=== PATIENT | female | born 1940 | race Caucasian/White ===

== ENCOUNTER 2016-08-19 11:53 | Inpatient (IN) ==
[2016-08-19] MEDS ORDERED: SODIUM CHLORIDE 0.9% 1,000 ML IV STA (12:36)
--- NOTE | 2016-08-19 12:48 | XRay Report ---
XR chest 1V portable Indication: Altered mental status Comparison: None Technique: Single frontal view of the chest. Findings: Heart size appears within normal limits. Chronic change of the lungs without focal consolidation, pleural effusion, or pneumothorax. Visualized osseous and surrounding soft tissue structures demonstrate no acute abnormality. Diffuse osteopenia. IMPRESSION: No acute cardiopulmonary process demonstrated. PROCEDURE INTERPRETED AT [facility] DEPARTMENT OF RADIOLOGY Final Report Signed by: Dr David Garcia
--- NOTE | 2016-08-19 12:48 | Emergency Department Note ---
Mary Jane Dior Gwan, am scribing for, and in the presence of, Joe Blood MD 12 :35. Caitie Dior Charles R, MD, personally performed the services described in this documentation, ascribed by Clare Hinton in my presence, and it is both accurate and complete . Arrival - Arrival Chief Complaint: Altered Mental Status Stated Complaint: Altered LOC ED Nursing Triage Note: Brought in per EMS from [facility] with c/o altered mental status onset 08/16/16 after starting on Namenda. Awake and alert to name only. +edema noted to bilateral lower extremities. Family also c/o patient with decreased urine output. Mode of Arrival: Stretcher Limitations: No Limitations Source: Patient, Family, Old Records Reviewed, RN Notes Reviewed Time Seen by Provider: 08/19/16 12:17 - History of Present Illness HPI Narrative: Patient is an ill-appearing 76 y/o white female who was brought into the ED via EMS from [facility] for further evaluation of AMS with an onset 3 days ago. Patient is confused and a poor historian. She is accompanied by a family member. Family stated that pt has a hx of broken right hip s/p fall last week. Family confirmed that pt is being followed by Dr. Johnson and was last seen in office last week with NML results. Her basline consist of walking with her walker and being coherent. Since onset, pt had not been ambulatory at all and has had severe confusion. Family also stated that pt has had decreased PO intake and decreased urine output. No other problems/complaints reported in ED. Onset (ago): day(s) Consistency: constant Severity: moderate Date of Last Menstrual Period: PM Allergies/Adverse Reactions: Allergies Allergy/AdvReac Type Severity Reaction Status Date / Time Penicillins Allergy Unknown/Unable Verified 08/19/16 12:07 to obtain Review of System - Review of System ROS unobtainable: due to mental status Medical,Surgical,& Family Hx - Medical History Cardio: History of: Cardiac Dysrhythmia (afib), Hypertension Neurology: History of: Dementia - Social History Smoking Status: Smoker, status unknown Frequency of Alcohol Use: None Type of Drug Use: None Exam Vital Signs: Vital Signs Temperature 97.4 F L 08/19/16 11:53 Pulse Rate 79 08/19/16 11:53 Respiratory Rate 20 08/19/16 11:53 Blood Pressure 94/55 08/19/16 11:53 O2 Sat by Pulse Oximetry 94 L 08/19/16 11:53 - General General appearance: alert, other (emaciated) - Head Head exam: Present: atraumatic, normocephalic - Eye Eye exam: Present: PERRL, other (sunken orbits) - ENT ENT exam: Present: normal oropharynx, mucous membranes dry - Neck Neck exam: Present: full ROM, trachea midline. Absent: tenderness - Chest Chest inspection: Present: symmetric chest wall rise. Absent: tenderness - Respiratory Respiratory exam: Present: rhonchi, wheezes. Absent: respiratory distress - Cardiovascular Cardiovascular exam: Present: other (Extrasistole) - Extremities Exam Extremities exam: Present: full ROM, other (+1 edema ). Absent: tenderness - Back Exam Back exam: Present: full ROM. Absent: tenderness - Neurological Exam Neurological exam: Present: alert, oriented X3, CN II-XII intact. Absent: motor sensory deficit - Psychiatric Psychiatric exam: Present: normal affect, normal mood - Skin Skin exam: Present: warm, dry, intact, normal color Course - Consultations Consultation #1: Hospitalist will admit patient Time: 14:23 Results - Labs CBC & BMP: 08/19/16 13:31 08/19/16 13:31 Lab Results: I have reviewed the patients labs Labs: Laboratory Tests 08/19/16 13:31 WBC 6.0 RBC 4.05 Hgb 12.6 Hct 35.0 L MCV 86.4 L Plt Count 217 MPV 8.9 L Laboratory Tests 08/19/16 13:31 INR 8.4 H* PT Patient/Control Mix 101.8 - Diagnostic Findings Procedure: Chest x-ray: report reviewed by me (No acute cardiopulmonary process demonstrated. ), CT: report reviewed by me (Head: There is no acute intracranial hemorrhage. 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 However, more recent underlying infarct not excluded. If there is clinical concern for acute infarct, MRI of the brain may be beneficial for further evaluation. The CT exam was performed using one or more of the following dose reduction techniques. Although exposure control, adjustment of the mA and /or kV according to patient size, or use of iterative reconstruction techniques. ) Critical Care Time Critical Care Time: Yes Total Critical Care Time: 60 Disposition Clinical Impression: Altered mental status, Hyponatremia, Dementia, Elevated INR, Renal insufficiency, Hypokalemia Case discussed with: patient, patient's family Disposition: Still a Patient Condition: Guarded Time of Disposition: 14:24
--- NOTE | 2016-08-19 13:00 | CT Report ---
CT head/brain wo con Indication: Mental status changes Comparison: None Technique: Multiple axial tomographic images of the brain were obtained without the use of intravenous contrast. 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 More recent underlying infarct not excluded. There is no evidence of acute intracranial hemorrhage or hydrocephalus. Mild global volume loss present. Mild periventricular and subcortical hypoattenuation noted which is nonspecific but consistent with chronic microvascular ischemic change. Demyelinating process and vasculitis less likely considerations. Atherosclerotic calcifications demonstrated. The visualized paranasal sinuses and bilateral mastoid air cells are essentially clear. IMPRESSION: There is no acute intracranial hemorrhage. 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 However, more recent underlying infarct not excluded. If there is clinical concern for acute infarct, MRI of the brain may be beneficial for further evaluation. The CT exam was performed using one or more of the following dose reduction techniques: Automated exposure control, adjustment of the mA and/or kV according to patient size, or use of iterative reconstruction technique. PROCEDURE INTERPRETED AT [facility] DEPARTMENT OF RADIOLOGY Final Report Signed by: Dr David Garcia
[2016-08-19 13:41] LABS: Basophils % 0.2 % (0.0-0.8); Eosinophils # 0.1 10*3/uL (0.0-0.87); Hemoglobin 12.6 GM/DL (12.0-16.0); Immature Granulocytes % 0.5 %; Immature Granulocytes Absolute 0.03 #; Lymphocytes # 1.4 10*3/uL (1.4-4.0); Lymphocytes % 22.5 % (21.3-54.2); Mean Corpuscular Hemoglobin 31 PG (27-34); Mean Corpuscular Volume 86.4 FL (87-102); Mean Platelet Volume 8.9 FL (9.6-12.0); Monocytes # 0.6 10*3/uL (0.11-0.8); Monocytes % 9.5 % (1.7-12.7); Neutrophils # 3.9 10*3/uL (1.4-7.4); Neutrophils % 65.3 % (38.7-73.9); Platelet Count 217 T/CUMM (130-400); Red Blood Count 4.05 MC/CUMM (3.8-5.5); Red Cell Distribution Width 14.2 % (9.3-17.3)
[2016-08-19 14:04] LABS: INR 8.4; PT Patient Result 101.8 SECS
[2016-08-19 14:13] LABS: Alanine Aminotransferase 17 U/L (13-56); Albumin 3.7 G/DL (3.4-5.0); Alkaline Phosphatase 128 U/L (45-117); Aspartate Amino Transferase 27 U/L (0-37); Blood Urea Nitrogen 53 MG/DL (7-18); Glucose 84 MG/DL (74-106); Magnesium 2.1 MG/DL (1.8-2.4); Osmolality,Calculated 267.2 MOS/KG (273-304); Potassium 3.3 MMOL/L (3.5-5.1); Sodium 127 MMOL/L (136-145); Troponin I Only < 0.015 NG/ML (0.00-0.045)
[2016-08-19 14:14] LABS: Apearance,Urine CLEAR (Clear); Bilirubin,Urine Negative (Negative); Blood, Urine Negative (Negative); Glucose,Urine (UA) Negative (Negative); Hyaline Casts,Urine 4 /LPF (0-3); Ketones,Urine Negative (Negative); Mucus,Urine Occasional /LPF (Occasional); Nitrite,Urine Negative (Negative); Protein,Urine Negative; RBC,Urine <1 /HPF (0-4); Urine Color Yellow (Yellow); Urine Specific Gravity 1.005 (1.001-1.035); Urine Urobilinogen < 2.0 EU/DL (0.2-1.0); WBC,Urine <1 /HPF (0-6)
[2016-08-19 14:31] LABS: Barbiturates Screen,Urine Negative (Negative); Benzodiazepines Screen,Urine Negative (Negative); Cannabinoid Screen,Urine Negative (Negative); Opiate Screen,Urine Negative (Negative); Phencyclidine Screen,Urine Negative (Negative)
[2016-08-19] MEDS ORDERED: MAGNESIUM SULF RIDER 2 GM in PREMIX 1 EACH IV PRN (15:17)
[2016-08-19] MEDS ORDERED: MAGNESIUM SULF RIDER 4 GM in PREMIX 1 EACH IV PRN (15:17)
[2016-08-19] MEDS ORDERED: PHYTONADIONE 10 MG/1 ML AMP IV ONE (15:18)
[2016-08-19 15:31] LABS: Ammonia < 10 UMOL/L (11-32)
--- NOTE | 2016-08-19 15:45 | Hospitalist History & Physical ---
<Sara Stewartda - Last Filed: 08/19/16 15:57> Assessment and Plan (1) Altered mental status Status: Acute Assessment and plan: I am not sure with the patient is mental status is at baseline;the patient does have an underlying diagnosis of dementia. The family reports that this is not her baseline that she is only intermittently confused. CT of the head was essentially unremarkable. I feel that the confusion may be attributed to the multiple electrolyte deficits mainly her sodium level. We will carefully and gently correct these deficit and continue to monitor. Current Visit: Yes (2) Elevated international normalized ratio (INR) Status: Acute Assessment and plan: INR was noted at 8.4. The patient has no record of receiving an anticoagulation agent. We will attempt to correct with vitamin K and recheck in a.m. Current Visit: Yes (3) Hypokalemia Status: Acute Assessment and plan: Potassium was noted at 3.3. We will correct the deficit and recheck in a.m. Current Visit: Yes (4) Hyponatremia Status: Acute Assessment and plan: Sodium sodium noted at 12. We will correct the deficit and recheck in a.m. Current Visit: Yes (5) Renal insufficiency Status: Acute Assessment and plan: BUN noted at 53 and creatinine noted at 1.50. Not sure what her actual renal baseline is. We will gently rehydrate and recheck in a.m. Current Visit: Yes History of Present Illness Chief complaint: Altered mental status History of present illness: This is a chronically ill 76-year-old female that presented to the ED at [facility] this afternoon per EMS from [facility] for the evaluation of altered mental status. Patient has a medical history significant for atrial fibrillation, hypertension, and dementia. The patient is a poor historian, the family is at bedside they was serve as historian. The family reports an onset of altered mental status 3 days prior to presentation. The patient reports an acute change in the patient' s mental status after she sustained a fall which resulted in a contusion of the left hip. She was seen here in the ED evaluated and discharged back to [facility]. They report that she was evaluated by her primary care physician which is Dr. Johnson and that she was back to her baseline. However, they report that there has been acute change in her mentation and that the patient is no longer ambulatory which was her baseline. They also report a decrease in her p.o. intake and urinary output. At the time of ED presentation labs were obtained. Hematology panel reported her white blood cell count at 6.0, hemoglobin at 12.6, hematocrit 35.0, and platelet count of 217. Coagulation panels were obtained which reported a grossly elevated INR at 8.4. Chemistry panel was obtained which reported her sodium at 127, potassium 3.3, chloride 82, carbon dioxide at 31, anion gap of 17.3, BUN of 53, creatinine at 1.50, glucose at 84, calculated osmolality 267.2 , lactic acid at 0.8, calcium at 9.0, magnesium at 2.1, total bilirubin at 0.80 , AST 27, ALT at 17, alkaline phosphatase at 128. Ammonia level was essentially unremarkable at less than 10. Cardiac enzymes were obtained which reported a troponin at less than 0.015. Chest x-ray was essentially negative for any acute cardiopulmonary process. CT head reported no acute intracranial hemorrhage, hypo-attenuation demonstrated within the medial right temporal occipital, region which most likely reflects an old infarct, however most recent underlying infarct not included. After brief discussion with both Dr. Blood and Dr. Frazier, the patient will be admitted to the hospitalist services for continuation of care. Home Medications Medication Instructions Recorded Confirmed Type Aspirin EC Tab 325 mg PO DAILY 08/19/16 08/19/16 History Atorvastatin [Lipitor] 10 mg PO DAILY 08/19/16 08/19/16 History Docusate Sodium 100 mg PO DAILY 08/19/16 08/19/16 History Furosemide Tab [Lasix Tab] 40 mg PO MOWEFR 08/19/16 08/19/16 History LORazepam TAB [Ativan Tab] 1 mg PO Q6H PRN 08/19/16 08/19/16 History Losartan Potassium 100 mg PO DAILY 08/19/16 08/19/16 History Memantine [Namenda] 10 mg PO BID 08/19/16 08/19/16 History Mirtazapine 15 mg PO QPM 08/19/16 08/19/16 History Nadolol 40 mg PO DAILY 08/19/16 08/19/16 History Omeprazole [Prilosec] 20 mg PO DAILY 08/19/16 08/19/16 History Senna Tab [Senokot] 8.6 mg PO DAILY 08/19/16 08/19/16 History Sertraline [Zoloft] 50 mg PO DAILY 08/19/16 08/19/16 History cloNIDine TAB [Catapres Tab] 0.1 mg PO DAILY PRN 08/19/16 08/19/16 History hydroCHLOROthiazide 12.5 mg PO DAILY 08/19/16 08/19/16 History [Hydrochlorothiazide] traMADol TAB [Ultram] 50 mg PO Q6H PRN 08/19/16 08/19/16 History Allergies Allergy/AdvReac Type Severity Reaction Status Date / Time Penicillins Allergy Unknown/Unable Verified 08/19/16 12:07 to obtain Medical,Surgical,& Family Hx - Medical History Cardio: History of: Cardiac Dysrhythmia (afib), Hypertension Neurology: History of: Dementia - Social History Smoking Status: Smoker, status unknown Frequency of Alcohol Use: None Type of Drug Use: None Exam - Constitutional Vitals: Period Temp Pulse Resp BP Sys/Callejas Pulse Ox Last 24 Hr 97.4 F-97.4 F 79-79 20-20 94-94/55-55 94 General appearance: normal weight, no acute distress - Head Head exam: Present: normal inspection, normocephalic, atraumatic - Eye Eye exam: Present: EOMI, conjunctival injection Pupils: Present: PRECIOUS, normal accommodation - ENT ENT exam: Present: normal exam, normal external ear exam, normal oropharynx - Neck Neck exam: Present: normal inspection. Absent: lymphadenopathy, meningismus, tenderness, thyromegaly - Respiratory Respiratory exam: Present: rhonchi, wheezes - Cardiovascular Cardiovascular exam: Present: regular rate and rhythm. Absent: bradycardia, carotid bruit, diastolic murmur, gallop, JVD, rubs, systolic murmur - GI/Abdominal GI/Abdominal exam: Present: normal bowel sounds, soft. Absent: tenderness, rebound - Extremities Exam Extremities exam: Present: normal inspection, normal capillary refill, full ROM , edema - Back Exam Back exam: Present: normal inspection - Neurological Exam Neurological exam: Present: alert, altered - Psychiatric Psychiatric exam: Present: normal affect, normal mood - Skin Skin exam: Present: normal color, warm, dry Results - Labs CBC & BMP: 08/19/16 13:31 08/19/16 13:31 Lab Results: I have reviewed the past 24 hour labs <Stacie Frazier - Last Filed: 08/19/16 16:55> History of Present Illness History of present illness: Patient seen and examined independently of [employer] Terry, agree with history, assessment and plan as documented. 76 y/o WF being admitted from an assisted living facility with encephalopathy. On my exam patient is oriented to person and city, not time. She is noted to have a suprtherapeutic inr, hyponatremia and [place]. No signs of active bleeding, so will repeat inr and hold off on vitamin k. Will hydrate with IV fluids, she appears dry on exam. CT head is questionable so will order MRI brain. Exam - Constitutional Vitals: Period Temp Pulse Resp BP Sys/Callejas Pulse Ox Last 24 Hr 97.4 F-97.4 F 75-83 14-21 94-109/55-69 94-127 Results - Labs CBC & BMP: 08/19/16 13:31 08/19/16 13:31
--- NOTE | 2016-08-19 15:53 | Hospitalist History & Physical ---
History of Present Illness History of present illness: Ms. Quick is a 76 year old female Home Medications Medication Instructions Recorded Confirmed Type Aspirin EC Tab 325 mg PO DAILY 08/19/16 08/19/16 History Atorvastatin [Lipitor] 10 mg PO DAILY 08/19/16 08/19/16 History Docusate Sodium 100 mg PO DAILY 08/19/16 08/19/16 History Furosemide Tab [Lasix Tab] 40 mg PO MOWEFR 08/19/16 08/19/16 History LORazepam TAB [Ativan Tab] 1 mg PO Q6H PRN 08/19/16 08/19/16 History Losartan Potassium 100 mg PO DAILY 08/19/16 08/19/16 History Memantine [Namenda] 10 mg PO BID 08/19/16 08/19/16 History Mirtazapine 15 mg PO QPM 08/19/16 08/19/16 History Nadolol 40 mg PO DAILY 08/19/16 08/19/16 History Omeprazole [Prilosec] 20 mg PO DAILY 08/19/16 08/19/16 History Senna Tab [Senokot] 8.6 mg PO DAILY 08/19/16 08/19/16 History Sertraline [Zoloft] 50 mg PO DAILY 08/19/16 08/19/16 History cloNIDine TAB [Catapres Tab] 0.1 mg PO DAILY PRN 08/19/16 08/19/16 History hydroCHLOROthiazide 12.5 mg PO DAILY 08/19/16 08/19/16 History [Hydrochlorothiazide] traMADol TAB [Ultram] 50 mg PO Q6H PRN 08/19/16 08/19/16 History Allergies Allergy/AdvReac Type Severity Reaction Status Date / Time Penicillins Allergy Unknown/Unable Verified 08/19/16 12:07 to obtain Medical,Surgical,& Family Hx - Medical History Cardio: History of: Cardiac Dysrhythmia (afib), Hypertension Neurology: History of: Dementia - Social History Smoking Status: Smoker, status unknown Frequency of Alcohol Use: None Type of Drug Use: None Exam - Constitutional Vitals: Period Temp Pulse Resp BP Sys/Callejas Pulse Ox Last 24 Hr 97.4 F-97.4 F 79-79 20-20 94-94/55-55 94 Results - Labs CBC & BMP: 08/19/16 13:31 08/19/16 13:31
[2016-08-19] MEDS ORDERED: PHYTONADIONE 10 MG/1 ML AMP ONE (16:21)
[2016-08-19] MEDS: MIRTAZAPINE 15 MG TABLET PO SCH (18:47)
[2016-08-19] MEDS: POTASSIUM CHLORIDE RIDER 10 MEQ in PREMIX 1 EACH IV PRN ×3 (18:48→22:48)
--- NOTE | 2016-08-19 19:42 | Ultrasound Report ---
History bilateral lower extremity swelling and edema Bilateral lower extremity venous Doppler performed with grayscale, spectral Doppler, and color flow analysis performed and interpreted. No evidence of echogenic, noncompressible thrombus seen in either common femoral, superficial femoral, popliteal, or saphenous veins Impression: No evidence of DVT seen in either lower extremity. PROCEDURE INTERPRETED AT [facility] DEPARTMENT OF RADIOLOGY Final Report Signed by: Dr. Toshia Cao
[2016-08-19] MEDS: MEMANTINE 10 MG TABLET PO SCH (20:52)
[2016-08-20] MEDS: POTASSIUM CHLORIDE RIDER 10 MEQ in PREMIX 1 EACH IV PRN ×3 (01:00→09:30)
[2016-08-20 01:26] LABS: D-Dimer 1.5 MG/L FEU; PT Patient Result 10.7 SECS; Partial Thromboplastin Time 27.2 SECS (0-40)
[2016-08-20 01:38] LABS: Albumin 4.2 G/DL (3.4-5.0); Bilirubin,Total 0.8 MG/DL (0.2-1.0); Calcium 9.9 MG/DL (8.5-10.1); Magnesium 1.9 MG/DL (1.8-2.4); Osmolality,Calculated 268.9 MOS/KG (273-304); Phosphorous 2.7 MG/DL (2.5-4.9); Potassium 3.5 MMOL/L (3.5-5.1); Total Protein 7.8 G/DL (6.4-8.3)
[2016-08-20 01:51] LABS: Basophils % 0.5 % (0.0-0.8); Eosinophils # 0.1 10*3/uL (0.0-0.87); Eosinophils % 1.6 % (0.00-10.9); Hematocrit 37.9 VOL% (35.7-47.0); Hemoglobin 13.6 GM/DL (12.0-16.0); Immature Granulocytes % 0.5 %; Immature Granulocytes Absolute 0.03 #; Lymphocytes # 1.3 10*3/uL (1.4-4.0); Lymphocytes % 19.8 % (21.3-54.2); Mean Corpuscular HGB Conc 35.9 GM/DL (32-36); Mean Corpuscular Hemoglobin 31 PG (27-34); Mean Corpuscular Volume 85.4 FL (87-102); Mean Platelet Volume 9.2 FL (9.6-12.0); Monocytes # 0.6 10*3/uL (0.11-0.8); Monocytes % 9.8 % (1.7-12.7); NRBC # 0.09 10*3/uL; Neutrophils # 4.4 10*3/uL (1.4-7.4); Neutrophils % 67.8 % (38.7-73.9); Platelet Count 255 T/CUMM (130-400); Red Blood Count 4.44 MC/CUMM (3.8-5.5); Red Cell Distribution Width 14.2 % (9.3-17.3); White Blood Count 6.4 T/CUMM (4-12)
[2016-08-20 05:32] LABS: PT Patient Result 10.6 SECS; Partial Thromboplastin Time 27.1 SECS (0-40)
[2016-08-20 06:10] LABS: Folate 21.8 NG/ML (5.4-24.0)
[2016-08-20] MEDS: DOCUSATE SODIUM 100 MG CAPSULE PO SCH (09:25)
[2016-08-20] MEDS: ATORVASTATIN 10 MG TABLET PO SCH (09:25)
[2016-08-20] MEDS: MEMANTINE 10 MG TABLET PO SCH ×2 (09:26→21:01)
[2016-08-20] MEDS: SERTRALINE 50 MG TABLET PO SCH (09:26)
--- NOTE | 2016-08-20 12:49 | Magnetic Resonance Report ---
Referring physician: Stacie Frazier MD Exam: MRI brain without contrast Date: August 20, 2016 Comparison: CT brain without contrast August 19, 2016 Reason: Altered mental status, possible remote infarction within the right temporal lobe The patient is an inpatient who was admitted on August 19, 2016. Technique: MRI of the brain was performed without the use of contrast. Obtained images include sagittal T1, axial diffusion-weighted, axial FLAIR, axial T2, coronal T2, axial gradient and axial T1 sequences. A 1.5 Arlyn magnet was used. Findings: Motion artifact is present and degrades the quality of the study. There are small scattered areas of T2/FLAIR hyperintensity within the cerebral white matter bilaterally. This is nonspecific but likely represents mild chronic microvascular ischemic change. Less likely considerations include a demyelinating process, vasculitis, viral process or Lyme disease. A remote periventricular infarction is suspected at the medial aspects of the right temporal lobe and right occipital lobe. There is also mild generalized cerebral atrophy/volume loss. No hydrocephalus or midline shift is present. There is no evidence of recent intracranial hemorrhage, abnormal mass effect or an acute infarction. Major vascular flow voids are visualized. The orbits, sella and brainstem are unremarkable as visualized. The visualized paranasal sinuses and right mastoid air cells are clear. There is minimal fluid within the left mastoid air cells. Impression: 1. No acute intracranial process is identified. 2. There is mild generalized cerebral atrophy/volume loss and probable mild chronic microvascular ischemic change. 3. A remote infarction is suspected in the periventricular region at the medial aspects of the right temporal lobe and right occipital lobe. Of note, motion artifact limits evaluation. PROCEDURE INTERPRETED AT [facility] DEPARTMENT OF RADIOLOGY Final Report Signed by: Dr. Suleiman Mann
--- NOTE | 2016-08-20 13:18 | Hospitalist Progress Note ---
Assessment and Plan (1) Altered mental status Status: Acute Assessment and plan: Still with confusion CT head without acute process, MRI ordered She did have multiple electrolyte abnormalities on admission, improving with IV hydration Current Visit: Yes (2) Hyponatremia Status: Acute Assessment and plan: Sodium 127 from 129, continue IV hydration Current Visit: Yes (3) Renal insufficiency Status: Acute Assessment and plan: Improving with IV hydration Current Visit: Yes (4) Hypokalemia Status: Acute Assessment and plan: Resolved Current Visit: Yes Hospitalist: Subjective Interval history: No acute events overnight. Patient remains confused, oriented to person and place only. Exam - Constitutional Vitals: Period Temp Pulse Resp BP Sys/Callejas Pulse Ox Last 24 Hr 97.0 F-98 F 68-108 10-24 105-169/51-116 96-127 General appearance: under weight - Head Head exam: Present: normocephalic, atraumatic - Eye Eye exam: Present: EOMI Pupils: Present: PRECIOUS - ENT ENT exam: Present: normal exam - Neck Neck exam: Present: normal inspection - Respiratory Respiratory exam: Present: clear to auscultation bilaterally. Absent: rhonchi, wheezes - Cardiovascular Cardiovascular exam: Present: regular rate and rhythm - GI/Abdominal GI/Abdominal exam: Present: normal bowel sounds, soft. Absent: tenderness, rebound - Extremities Exam Extremities exam: Present: normal inspection - Back Exam Back exam: Present: normal inspection - Neurological Exam Neurological exam: Present: alert, altered - Psychiatric Psychiatric exam: Present: normal affect, normal mood - Skin Skin exam: Present: warm, intact Results - Labs CBC & BMP: 08/20/16 00:59 08/20/16 05:01
[2016-08-20] MEDS: MIRTAZAPINE 15 MG TABLET PO SCH (20:13)
[2016-08-20] MEDS: DESITIN 4OZ/NYSTATIN 15 GRAM MIXTURE PASTE TOP SCH (21:02)
[2016-08-20] MEDS: traMADol 50 MG TABLET PO PRN (22:59)
[2016-08-21] MEDS: DESITIN 4OZ/NYSTATIN 15 GRAM MIXTURE PASTE TOP SCH ×3 (00:29→21:43)
[2016-08-21 05:39] LABS: Basophils % 0.3 % (0.0-0.8); Eosinophils # 0.1 10*3/uL (0.0-0.87); Eosinophils % 1.8 % (0.00-10.9); Hematocrit 35.8 VOL% (35.7-47.0); Hemoglobin 12.8 GM/DL (12.0-16.0); Immature Granulocytes % 0.4 %; Immature Granulocytes Absolute 0.03 #; Lymphocytes # 1.7 10*3/uL (1.4-4.0); Lymphocytes % 22.9 % (21.3-54.2); Mean Corpuscular HGB Conc 35.8 GM/DL (32-36); Mean Corpuscular Hemoglobin 30 PG (27-34); Mean Corpuscular Volume 84.4 FL (87-102); Mean Platelet Volume 8.9 FL (9.6-12.0); Monocytes # 0.8 10*3/uL (0.11-0.8); Monocytes % 11.3 % (1.7-12.7); Neutrophils # 4.6 10*3/uL (1.4-7.4); Neutrophils % 63.3 % (38.7-73.9); Platelet Count 304 T/CUMM (130-400); Red Blood Count 4.24 MC/CUMM (3.8-5.5); Red Cell Distribution Width 14.1 % (9.3-17.3); White Blood Count 7.3 T/CUMM (4-12)
[2016-08-21 06:06] LABS: Calcium 9.3 MG/DL (8.5-10.1); Magnesium 1.7 MG/DL (1.8-2.4); Osmolality,Calculated 265.1 MOS/KG (273-304); Potassium 3.4 MMOL/L (3.5-5.1)
[2016-08-21] MEDS: ATORVASTATIN 10 MG TABLET PO SCH (10:00)
[2016-08-21] MEDS: MEMANTINE 10 MG TABLET PO SCH ×2 (10:00→21:31)
[2016-08-21] MEDS: DOCUSATE SODIUM 100 MG CAPSULE PO SCH (10:00)
[2016-08-21] MEDS: SERTRALINE 50 MG TABLET PO SCH (10:01)
--- NOTE | 2016-08-21 10:47 | Hospitalist Progress Note ---
Assessment and Plan - Time spent with patient Time spent with patient: Greater than 30 minutes (1) Acute encephalopathy Status: Acute Assessment and plan: Improving. Presumed to be metabolic encephalopathy. Infection ruled out. Acute CVA ruled out. Improving with resolution of acute renal failure/dehydration. Associated agitation and combativeness resolving. Current Visit: Yes (2) Renal insufficiency Status: Acute Assessment and plan: acute renal failure resolving with IVF hydration. Will continue with IV NS and monitor response. Current Visit: Yes (3) Hyponatremia Status: Acute Assessment and plan: urine and serum osmolality studies pending. Suspect hypovolemic hyponatremia from volume contraction and a normal ADH response. Cont IVF hydration with NS. Current Visit: Yes (4) Dementia Status: Acute Current Visit: Yes Hospitalist: Subjective Interval history: RN reports less agitation and combativeness. Will trial out of restraints today. Maintain 1:1 nursing for now. Exam - Constitutional Vitals: Period Temp Pulse Resp BP Sys/Callejas Pulse Ox Last 24 Hr 97.6 F-99.2 F 75-100 16-19 120-150/63-86 92-96 General appearance: under weight, other (confused but pleasant and cooperative ) - Head Head exam: Present: normal inspection, normocephalic, atraumatic - Eye Eye exam: Present: EOMI. Absent: conjunctival injection, scleral icterus Pupils: Present: PRECIOUS, normal accommodation - ENT ENT exam: Present: normal exam - Neck Neck exam: Present: normal inspection - Respiratory Respiratory exam: Present: clear to auscultation bilaterally. Absent: rales, rhonchi, wheezes - Cardiovascular Cardiovascular exam: Present: regular rate and rhythm. Absent: gallop, rubs - GI/Abdominal GI/Abdominal exam: Present: normal bowel sounds. Absent: tenderness - Extremities Exam Extremities exam: Present: normal inspection, full ROM - Neurological Exam Neurological exam: Present: alert, altered, CN II-XII intact - Psychiatric Psychiatric exam: Present: other (UTO) - Skin Skin exam: Present: normal color, warm, dry Results - Labs CBC & BMP: 08/21/16 04:46 08/21/16 04:46 - Diagnostic Findings Procedure: MRI: report reviewed by me
[2016-08-21] MEDS: traMADol 50 MG TABLET PO PRN ×2 (10:57→21:31)
[2016-08-21] MEDS: POTASSIUM CHLORIDE RIDER 10 MEQ in PREMIX 1 EACH IV PRN ×3 (11:56→13:22)
[2016-08-21] MEDS: SODIUM CHLORIDE 0.9% 1,000 ML IV SCH ×2 (11:58→21:39)
[2016-08-21] MEDS: MIRTAZAPINE 15 MG TABLET PO SCH (18:59)
[2016-08-22] MEDS: SODIUM CHLORIDE 0.9% 1,000 ML IV SCH ×2 (04:42→20:36)
[2016-08-22 06:53] LABS: Albumin 3.2 G/DL (3.4-5.0); Calcium 8.6 MG/DL (8.5-10.1); Osmolality,Calculated 271.2 MOS/KG (273-304); Phosphorous 2.6 MG/DL (2.5-4.9); Potassium 3.8 MMOL/L (3.5-5.1)
[2016-08-22] MEDS: SERTRALINE 50 MG TABLET PO SCH (09:33)
[2016-08-22] MEDS: DOCUSATE SODIUM 100 MG CAPSULE PO SCH (09:33)
[2016-08-22] MEDS: ATORVASTATIN 10 MG TABLET PO SCH (09:33)
[2016-08-22] MEDS: MEMANTINE 10 MG TABLET PO SCH ×2 (09:33→20:33)
[2016-08-22] MEDS: traMADol 50 MG TABLET PO PRN ×2 (09:34→20:32)
[2016-08-22] MEDS: DESITIN 4OZ/NYSTATIN 15 GRAM MIXTURE PASTE TOP SCH ×2 (09:35→20:36)
[2016-08-22] MEDS ORDERED: TUBERCULIN SKIN TEST 0.1 ML SYRINGE INTRADERM ONE (13:28)
--- NOTE | 2016-08-22 13:44 | Case Mgmt Physician Query Form ---
TB Signs and Symptoms Screening ([place]) INSTRUCTIONS: To be completed annually on residents/staff with a significant Tuberculin Skin Test (TST) upon admission/hire or a prior significant TST. To be completed on all staff at hire. Please respond to each listed symptom with an (X) in either the "YES" or "NO" box. Do you currently have any of the following symptoms: YES NO ( ) (x ) A cough If yes, is it: ( ) Productive ( ) Non- productive ( ) (x ) Hemoptysis (spitting up blood) ( ) (x ) Chest pains ( ) (x ) Weight Loss ( ) (x ) Fever ( ) (x ) Night Sweats ( ) (x ) Weakness ( ) (x ) Loss of Appetite ( ) (x ) Difficulty Breathing If you answered YES" to any of the above questions, how long have symptoms been present? Comments: WILLIAM
--- NOTE | 2016-08-22 14:06 | Hospitalist Progress Note ---
Assessment and Plan - Time spent with patient Time spent with patient: Greater than 30 minutes (1) Dementia Status: Acute Assessment and plan: Patient appears to be at baseline currently. Current Visit: Yes (2) Hyponatremia Status: Acute Assessment and plan: Improving. At discharge we will hold hydrochlorothiazide. Current Visit: Yes Hospitalist: Subjective Interval history: No complaints overnight events.No complaints overnight events. Exam - Constitutional Vitals: Period Temp Pulse Resp BP Sys/Callejas Pulse Ox Last 24 Hr 97.9 F-98.7 F 89-99 18-20 93-120/50-64 95-100 General appearance: no acute distress - Head Head exam: Present: normocephalic, atraumatic - Eye Eye exam: Present: EOMI Pupils: Present: PRECIOUS - ENT ENT exam: Present: normal exam - Neck Neck exam: Present: normal inspection - Respiratory Respiratory exam: Present: clear to auscultation bilaterally. Absent: rhonchi, wheezes - Cardiovascular Cardiovascular exam: Present: regular rate and rhythm. Absent: gallop, rubs, systolic murmur - GI/Abdominal GI/Abdominal exam: Present: normal bowel sounds, soft. Absent: distended, firm , guarding, tenderness, rebound - Extremities Exam Extremities exam: Present: normal inspection. Absent: calf tenderness, edema Results - Labs CBC & BMP: 08/21/16 04:46 08/22/16 06:04 Lab Results: I have reviewed the past 24 hour labs
--- NOTE | 2016-08-22 15:14 | Physician Query Form ---
CLICK EDIT DOCUMENT TO SELECT QUERY ANSWER --> OK --> SIGN Emani Quezada RN Clinical [employer] W) [phone] (f) [phone] [email or web address] PROVIDERS: Make your selection(s) from the choices in EACH section by typing an "x" and enter comments in the comment section. Please use your independent medical judgment in providing your response. This request does not imply that any particular answer is desired or expected. CLINICAL INDICATORS: (Providers should not edit this section) Based on documentation of "acute renal insufficiency", creatinine on admission of 1.50 with a GFR of 30 and decreased to 0.80. Pt. treated with IV fluids of Normal Saline. Clarify which of the following most accurately represents the patient's renal status: (x ) Acute kidney injury (non-traumatic) ( ) Acute renal failure ( ) Acute renal failure with underlying Chronic Kidney Disease (CKD) - please provide stage below ( ) CKD - please provide stage below ( ) Other, please specify: ( ) Clinically unable to determine Chronic Kidney Disease Stages Source: National Kidney Disease Foundation ( ) Stage I (eGFR > or = 90) ( ) Stage II (eGFR 60 - 89) ( ) Stage III (eGFR 30 - 59) ( ) Stage IV (eGFR 15 - 29) ( ) Stage V (eGFR < 15 or dialysis) COMMENTS: PLEASE ALSO DOCUMENT RESPONSE IN PROGRESS NOTES AND/OR DISCHARGE SUMMARY Use of terms such as suspected, likely, or probable (associated with a specific diagnosis that is being evaluated, monitored, or treated as if it exists) are acceptable and can be restated in the discharge summary if not ruled out. MTDD
[2016-08-22] MEDS: MIRTAZAPINE 15 MG TABLET PO SCH (18:55)
[2016-08-23 04:40] LABS: Basophils % 0.4 % (0.0-0.8); Eosinophils # 0.1 10*3/uL (0.0-0.87); Eosinophils % 1.6 % (0.00-10.9); Immature Granulocytes % 0.3 %; Immature Granulocytes Absolute 0.02 #; Lymphocytes # 1.7 10*3/uL (1.4-4.0); Lymphocytes % 23.4 % (21.3-54.2); Mean Corpuscular HGB Conc 34.5 GM/DL (32-36); Mean Corpuscular Hemoglobin 31 PG (27-34); Mean Corpuscular Volume 90.1 FL (87-102); Mean Platelet Volume 8.8 FL (9.6-12.0); Monocytes # 0.6 10*3/uL (0.11-0.8); Monocytes % 7.8 % (1.7-12.7); Neutrophils # 4.7 10*3/uL (1.4-7.4); Neutrophils % 66.5 % (38.7-73.9); Platelet Count 246 T/CUMM (130-400); Red Blood Count 3.44 MC/CUMM (3.8-5.5); Red Cell Distribution Width 14.7 % (9.3-17.3)
[2016-08-23] MEDS: SODIUM CHLORIDE 0.9% 1,000 ML IV SCH ×2 (04:46→16:03)
[2016-08-23 05:04] LABS: Hemoglobin 10.7 GM/DL (12.0-16.0)
[2016-08-23 05:06] LABS: Calcium 8.7 MG/DL (8.5-10.1); Osmolality,Calculated 279.4 MOS/KG (273-304); Potassium 3.5 MMOL/L (3.5-5.1)
[2016-08-23] MEDS: traMADol 50 MG TABLET PO PRN (08:03)
[2016-08-23] MEDS: DOCUSATE SODIUM 100 MG CAPSULE PO SCH (09:07)
[2016-08-23] MEDS: ATORVASTATIN 10 MG TABLET PO SCH (09:07)
[2016-08-23] MEDS: MEMANTINE 10 MG TABLET PO SCH ×2 (09:07→21:19)
[2016-08-23] MEDS: SERTRALINE 50 MG TABLET PO SCH (09:07)
[2016-08-23] MEDS: DESITIN 4OZ/NYSTATIN 15 GRAM MIXTURE PASTE TOP SCH ×2 (09:07→21:19)
--- NOTE | 2016-08-23 11:56 | Hospitalist Progress Note ---
Assessment and Plan - Time spent with patient Time spent with patient: Greater than 30 minutes (1) Dementia Status: Acute Assessment and plan: Patient appears to be at baseline currently. Current Visit: Yes (2) Hyponatremia Status: Acute Assessment and plan: Improving. At discharge we will hold hydrochlorothiazide. Current Visit: Yes Hospitalist: Subjective Interval history: No overnight events. Exam - Constitutional Vitals: Period Temp Pulse Resp BP Sys/Callejas Pulse Ox Last 24 Hr 97.4 F-98.9 F 76-98 12-20 109-172/55-76 93-97 General appearance: no acute distress - Head Head exam: Present: normocephalic, atraumatic - Eye Eye exam: Present: EOMI Pupils: Present: PRECIOUS - ENT ENT exam: Present: normal exam - Neck Neck exam: Present: normal inspection - Respiratory Respiratory exam: Present: clear to auscultation bilaterally. Absent: rhonchi, wheezes - Cardiovascular Cardiovascular exam: Present: regular rate and rhythm. Absent: gallop, rubs, systolic murmur - GI/Abdominal GI/Abdominal exam: Present: normal bowel sounds, soft. Absent: distended, firm , guarding, tenderness, rebound - Extremities Exam Extremities exam: Present: normal inspection. Absent: calf tenderness, edema Results - Labs CBC & BMP: 08/23/16 04:13 08/23/16 04:13 Lab Results: I have reviewed the past 24 hour labs
[2016-08-23 15:06] LABS: DRVVT Screen Ratio 0.9 ratio (0.0 - 1.1)
[2016-08-23] MEDS: MIRTAZAPINE 15 MG TABLET PO SCH (19:14)
[2016-08-24] MEDS: traMADol 50 MG TABLET PO PRN ×2 (02:49→17:33)
[2016-08-24] MEDS: SODIUM CHLORIDE 0.9% 1,000 ML IV SCH ×3 (07:44→18:31)
[2016-08-24] MEDS: DESITIN 4OZ/NYSTATIN 15 GRAM MIXTURE PASTE TOP SCH ×2 (09:16→20:29)
[2016-08-24] MEDS: ATORVASTATIN 10 MG TABLET PO SCH (09:16)
[2016-08-24] MEDS: DOCUSATE SODIUM 100 MG CAPSULE PO SCH (09:16)
[2016-08-24] MEDS: SERTRALINE 50 MG TABLET PO SCH (09:16)
[2016-08-24] MEDS: MEMANTINE 10 MG TABLET PO SCH ×2 (09:16→20:29)
--- NOTE | 2016-08-24 10:00 | Hospitalist Progress Note ---
Assessment and Plan - Time spent with patient Time spent with patient: Greater than 30 minutes (1) Dementia Status: Acute Assessment and plan: Patient appears to be at baseline currently. Current Visit: Yes (2) Hyponatremia Status: Acute Assessment and plan: Improving. At discharge we will hold hydrochlorothiazide. Current Visit: Yes Hospitalist: Subjective Interval history: No complaints overnight events. Ms. Quick is doing much much better is at baseline on the phone talking with family. Exam - Constitutional Vitals: Period Temp Pulse Resp BP Sys/Callejas Pulse Ox Last 24 Hr 97.3 F-98.7 F 91-112 12-20 138-188/60-94 94-98 General appearance: no acute distress - Head Head exam: Present: normocephalic, atraumatic - Eye Eye exam: Present: EOMI Pupils: Present: PRECIOUS - ENT ENT exam: Present: normal exam - Neck Neck exam: Present: normal inspection - Respiratory Respiratory exam: Present: clear to auscultation bilaterally. Absent: rhonchi, wheezes - Cardiovascular Cardiovascular exam: Present: regular rate and rhythm. Absent: gallop, rubs, systolic murmur - GI/Abdominal GI/Abdominal exam: Present: normal bowel sounds, soft. Absent: distended, firm , guarding, tenderness, rebound - Extremities Exam Extremities exam: Present: normal inspection. Absent: calf tenderness, edema Results - Labs CBC & BMP: 08/23/16 04:13 08/23/16 04:13 Lab Results: I have reviewed the past 24 hour labs
[2016-08-24] MEDS: MIRTAZAPINE 15 MG TABLET PO SCH (18:31)
[2016-08-25 05:29] LABS: Basophils % 0.2 % (0.0-0.8); Eosinophils # 0.1 10*3/uL (0.0-0.87); Eosinophils % 0.8 % (0.00-10.9); Hematocrit 29.5 VOL% (35.7-47.0); Hemoglobin 10.3 GM/DL (12.0-16.0); Immature Granulocytes % 0.5 %; Immature Granulocytes Absolute 0.06 #; Lymphocytes # 1.5 10*3/uL (1.4-4.0); Lymphocytes % 13.6 % (21.3-54.2); Mean Corpuscular HGB Conc 34.9 GM/DL (32-36); Mean Corpuscular Hemoglobin 31 PG (27-34); Mean Corpuscular Volume 88.9 FL (87-102); Mean Platelet Volume 8.7 FL (9.6-12.0); Monocytes # 0.6 10*3/uL (0.11-0.8); Monocytes % 5.3 % (1.7-12.7); Neutrophils % 79.6 % (38.7-73.9); Platelet Count 240 T/CUMM (130-400); Red Blood Count 3.32 MC/CUMM (3.8-5.5); Red Cell Distribution Width 14.6 % (9.3-17.3); White Blood Count 11.3 T/CUMM (4-12)
[2016-08-25 05:56] LABS: Calcium 8.2 MG/DL (8.5-10.1); Osmolality,Calculated 270.7 MOS/KG (273-304); Potassium 3.2 MMOL/L (3.5-5.1)
[2016-08-25] MEDS: DOCUSATE SODIUM 100 MG CAPSULE PO SCH (09:01)
[2016-08-25] MEDS: ATORVASTATIN 10 MG TABLET PO SCH (09:01)
[2016-08-25] MEDS: DESITIN 4OZ/NYSTATIN 15 GRAM MIXTURE PASTE TOP SCH ×2 (09:01→21:38)
[2016-08-25] MEDS: SERTRALINE 50 MG TABLET PO SCH (09:01)
[2016-08-25] MEDS: MEMANTINE 10 MG TABLET PO SCH ×2 (09:01→21:38)
[2016-08-25] MEDS: POTASSIUM CHLORIDE RIDER 10 MEQ in PREMIX 1 EACH IV PRN (09:02)
[2016-08-25] MEDS ORDERED: ALUMINUM/MAGNES/SIMETH MAX STR 30 ML UDCUP PO PRN (11:08)
[2016-08-25 11:37] LABS: Apearance,Urine CLOUDY (Clear); Bilirubin,Urine Negative (Negative); Blood, Urine Moderate mg/dL (Negative); Glucose,Urine (UA) >=500 mg/dL (Negative); Ketones,Urine Negative (Negative); Nitrite,Urine Positive (Negative); Protein,Urine 100 MG/DL; RBC,Urine 138 /HPF (0-4); Urine Color Amber (Yellow); Urine Specific Gravity 1.007 (1.001-1.035); WBC,Urine 1621 /HPF (0-6)
--- NOTE | 2016-08-25 12:20 | EKG Report ---
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
[2016-08-25] MEDS ORDERED: DILTIAZEM INJ 100 MG in SODIUM CHLORIDE 0.9% 100 ML IV SCH (12:30)
--- NOTE | 2016-08-25 12:51 | Hospitalist Progress Note ---
Assessment and Plan - Time spent with patient Time spent with patient: Greater than 30 minutes (1) Atrial fibrillation with RVR Status: Acute Assessment and plan: Patient states this is not a new diagnosis and she has taken medicatons for this in the past. Cant find any records in our system confirming this. Will transfer to telemetry, start diltiazem drip and consult cardiology. Current Visit: Yes (2) Dementia Status: Acute Assessment and plan: Patient appears to be at baseline currently. Current Visit: Yes (3) UTI (urinary tract infection) Status: Acute Assessment and plan: Start Ciprofloxacin. Current Visit: Yes (4) Hyponatremia Status: Acute Assessment and plan: Improving. At discharge we will hold hydrochlorothiazide. Current Visit: Yes Hospitalist: Subjective Interval history: Ms Quick developed tachycardia and irregular heart beat today. She also complains of dysuria. Exam - Constitutional Vitals: Period Temp Pulse Resp BP Sys/Callejas Pulse Ox Last 24 Hr 96.5 F-97.9 F 107-134 14-20 146-188/68-101 94-98 General appearance: no acute distress - Head Head exam: Present: normocephalic, atraumatic - Eye Eye exam: Present: EOMI Pupils: Present: PRECIOUS - ENT ENT exam: Present: normal exam - Neck Neck exam: Present: normal inspection - Respiratory Respiratory exam: Present: clear to auscultation bilaterally. Absent: rhonchi, wheezes - Cardiovascular Cardiovascular exam: Present: irregular rhythm, tachycardia. Absent: gallop, rubs, systolic murmur - GI/Abdominal GI/Abdominal exam: Present: normal bowel sounds, soft. Absent: distended, firm , guarding, tenderness, rebound - Extremities Exam Extremities exam: Present: normal inspection. Absent: calf tenderness, edema Results - Labs CBC & BMP: 08/25/16 05:05 08/25/16 05:05 Lab Results: I have reviewed the past 24 hour labs
[2016-08-25] MEDS ORDERED: POTASSIUM CHLORIDE 20 MEQ PACK PO ONE (13:30)
[2016-08-25] MEDS: SODIUM CHLORIDE 0.9% 1,000 ML IV SCH ×2 (14:51→22:45)
[2016-08-25] MEDS: CIPROFLOXACIN INJ 400 MG in PREMIX 1 EACH IV SCH (16:13)
--- NOTE | 2016-08-25 19:55 | Cardiology Consult Note ---
Assessment and Plan - Time spent with patient Time spent with patient: Greater than 30 minutes (1) Atrial fibrillation with RVR Status: Acute Assessment and plan: The A. fib RVR could be related to or worsened having hypokalemia. She may have a structural heart disease because of her hypertension Plan/recommendation: Echo/Doppler in the morning--evaluate murmur, A. fib RVR Replete potassium Serial cardiac isoenzymes Control heart rate with IV Cardizem Can change the IV to oral Cardizem or use a beta-nasra in the morning Check magnesium-if it is low, replete EKG every morning 3 The [facility] team will follow along with you start tomorrow. Thank you for allowing me to participate in this patient's care Current Visit: Yes (2) Acute encephalopathy Status: Acute Current Visit: Yes (3) Altered mental status Status: Acute Current Visit: Yes (4) Dementia Status: Acute Current Visit: Yes (5) Elevated international normalized ratio (INR) Status: Acute Current Visit: Yes (6) Hypokalemia Status: Acute Current Visit: Yes (7) UTI (urinary tract infection) Status: Acute Current Visit: Yes History of Present Illness - Data of Consult Patient: new to practice Consult date: 08/25/16 Requesting Physician: Nitza Merino - Consult Narrative Reason for consult: Evaluate A. fib RVR History of present illness: Ms. Quick is a 76 year old female PCP:? 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 it could be 1 of the cardiologists at [facility] The patient was admitted for UTI. She is being treated. She subsequently noted to have rapid heart rate. EKG was obtained. She was in A. fib RVR. She did not feel rapid heart rate. She is transferred to telemetry. She was given some Cardizem in the form of an IV drip. She is slow down. I was asked see her. wno chest pain. Did not feel rapid heart rate. No orthopnea, PND, edema, palpitations, syncope, cough wheezing or phlegm. Past medical history: Hypertension Has had atrial fibrillation in the past. Last episode was about 10 years ago per the patient. She, per records, lives at [facility]: She says she smokes cigarettes. Denies drinking alcohol. Family history: Not remarkable coronary disease, diabetes, or atrial fibrillation. CC: Nitza Merino MD - Home Medications and Allergies Home Medications: Home Medications Medication Instructions Recorded Confirmed Type Aspirin EC Tab 325 mg PO DAILY 08/19/16 08/19/16 History Atorvastatin [Lipitor] 10 mg PO DAILY 08/19/16 08/19/16 History Docusate Sodium 100 mg PO DAILY 08/19/16 08/19/16 History Furosemide Tab [Lasix Tab] 40 mg PO MOWEFR 08/19/16 08/19/16 History LORazepam TAB [Ativan Tab] 1 mg PO Q6H PRN 08/19/16 08/19/16 History Losartan Potassium 100 mg PO DAILY 08/19/16 08/19/16 History Memantine [Namenda] 10 mg PO BID 08/19/16 08/19/16 History Mirtazapine 15 mg PO QPM 08/19/16 08/19/16 History Nadolol 40 mg PO DAILY 08/19/16 08/19/16 History Omeprazole [Prilosec] 20 mg PO DAILY 08/19/16 08/19/16 History Senna Tab [Senokot] 8.6 mg PO DAILY 08/19/16 08/19/16 History Sertraline [Zoloft] 50 mg PO DAILY 08/19/16 08/19/16 History cloNIDine TAB [Catapres Tab] 0.1 mg PO DAILY PRN 08/19/16 08/19/16 History hydroCHLOROthiazide 12.5 mg PO DAILY 08/19/16 08/19/16 History [Hydrochlorothiazide] traMADol TAB [Ultram] 50 mg PO Q6H PRN 08/19/16 08/19/16 History Allergies/Adverse Reactions: Allergies Allergy/AdvReac Type Severity Reaction Status Date / Time ibuprofen Allergy Intermediate ITCHING Verified 08/21/16 11:08 Penicillins Allergy Intermediate Unknown/Unable Verified 08/21/16 11:08 to obtain 12 point system: reviewed and no additional remarkable complaints except as stated (A 12 point review of systems is negative except for as mentioned in the HPI.) Medical,Surgical,& Family Hx - Medical History Cardio: History of: Cardiac Dysrhythmia (afib), Hypertension Neurology: History of: Dementia - Social History Smoking Status: Smoker, status unknown Frequency of Alcohol Use: None Type of Drug Use: None Physical Examination Vital Signs Temp Pulse Resp BP Pulse Ox 97.4 F L 79 20 94/55 94 L 08/19/16 11:53 08/19/16 11:53 08/19/16 11:53 08/19/16 11:53 08/19/16 11:53 Other: HEENT: Pupils equal, reactive to light and accommodation Neck: NoJVD or bruit Lungs clear to auscultation Heart: Regular rhythm rate with normal S1 and S2. Apical S4, 1-2/6 systolic ejection murmur along left sternal border. Abdomen: No hepatosplenomegaly Spine/extremities: No clubbing, cyanosis, or edema Neuro: Nonfocal; she may be slightly demented Psych: No depression or anxiety Result/EKG - Labs CBC & BMP: 08/25/16 05:05 08/25/16 05:05 Lab Results: I have reviewed the past 24 hour labs Labs: Laboratory Results - last 24 hr 08/25/16 08/25/16 08/25/16 05:05 05:05 11:00 WBC 11.3 D RBC 3.32 L Hgb 10.3 L Hct 29.5 L MCV 88.9 MCH 31 MCHC 34.9 RDW 14.6 Plt Count 240 MPV 8.7 L Neut % (Auto) 79.6 H Lymph % (Auto) 13.6 L [place] % (Auto) 5.3 Eos % (Auto) 0.8 Baso % (Auto) 0.2 Neut # (Auto) 9.0 H Lymph # (Auto) 1.5 [place] # (Auto) 0.6 Eos # (Auto) 0.1 Baso # (Auto) 0.0 Immature Gran % 0.5 Nucleated RBC % 0.0 Immature Gran # 0.06 Nucleated RBCs # 0.00 Sodium 138 Potassium 3.2 L Chloride 99 Carbon Dioxide 28 Anion Gap 14.2 BUN 3 L Creatinine 0.40 L GFR Calculation 84 BUN/Creatinine Ratio 7.00 Glucose 87 Calculated Osmolality 270.7 L Calcium 8.2 L Urine Color Nohelia Urine Appearance Cloudy Urine pH 6.0 Ur Specific [place] 1.007 Urine Protein 100 Urine Glucose (UA) >=500 Urine Ketones Negative Urine Blood Moderate Urine Nitrate Positive H Urine Bilirubin Negative Urine Urobilinogen 2.0 H Urine Leukocytes Large H Urine RBC 138 Urine WBC 1621 Urine WBC Clumps Many Ur Culture Indicated? Results to follow - Diagnostic Findings Procedure: Chest x-ray: report reviewed by me - EKG EKG results: interpreted by me
[2016-08-25] MEDS: MIRTAZAPINE 15 MG TABLET PO SCH (21:38)
[2016-08-26] MEDS: CIPROFLOXACIN INJ 400 MG in PREMIX 1 EACH IV SCH ×2 (03:16→13:44)
[2016-08-26 04:03] LABS: Basophils % 0.3 % (0.0-0.8); Eosinophils # 0.2 10*3/uL (0.0-0.87); Eosinophils % 1.6 % (0.00-10.9); Hematocrit 30.2 VOL% (35.7-47.0); Hemoglobin 10.2 GM/DL (12.0-16.0); Immature Granulocytes % 0.2 %; Immature Granulocytes Absolute 0.02 #; Lymphocytes # 1.4 10*3/uL (1.4-4.0); Lymphocytes % 15.3 % (21.3-54.2); Mean Corpuscular HGB Conc 33.8 GM/DL (32-36); Mean Corpuscular Hemoglobin 30 PG (27-34); Mean Corpuscular Volume 88.8 FL (87-102); Mean Platelet Volume 9.2 FL (9.6-12.0); Monocytes # 0.6 10*3/uL (0.11-0.8); Monocytes % 6.8 % (1.7-12.7); Neutrophils % 75.8 % (38.7-73.9); Platelet Count 277 T/CUMM (130-400); Red Cell Distribution Width 14.9 % (9.3-17.3); White Blood Count 9.3 T/CUMM (4-12)
[2016-08-26 04:17] LABS: Magnesium 1.2 MG/DL (1.8-2.4); Osmolality,Calculated 277.3 MOS/KG (273-304); Potassium 3.6 MMOL/L (3.5-5.1)
[2016-08-26 04:18] LABS: INR 1.1; PT Patient Result 11.4 SECS
[2016-08-26] MEDS: ATORVASTATIN 10 MG TABLET PO SCH (08:41)
[2016-08-26] MEDS: DOCUSATE SODIUM 100 MG CAPSULE PO SCH (08:41)
[2016-08-26] MEDS: MEMANTINE 10 MG TABLET PO SCH ×2 (08:41→20:18)
[2016-08-26] MEDS: SERTRALINE 50 MG TABLET PO SCH (08:41)
[2016-08-26] MEDS: DESITIN 4OZ/NYSTATIN 15 GRAM MIXTURE PASTE TOP SCH ×2 (08:43→20:19)
[2016-08-26] MEDS: SODIUM CHLORIDE 0.9% 1,000 ML IV SCH (08:54)
--- NOTE | 2016-08-26 11:19 | Hospitalist Progress Note ---
Assessment and Plan (1) Atrial fibrillation with RVR Status: Acute Assessment and plan: 1)UTI- GNR in urine. on cipro. 2)afib with RVR- she has had afib in the past she tells me and was on aspirin but not more aggressive anticoagulation per her PCP. INR was 8.4 on arrival, now 1.1. No coumadin listed on her home meds. Echo pending, rate better on IV Dilt. 3)dementia- lives at [facility]. 4)hyponatremia- corrected. HCTZ stopped. 5)hypokalemia- corrected. HCTZ stopped. Current Visit: Yes (2) Hyponatremia Status: Acute Current Visit: Yes (3) Dementia Status: Acute Current Visit: Yes (4) Hypokalemia Status: Acute Current Visit: Yes (5) UTI (urinary tract infection) Status: Acute Current Visit: Yes Hospitalist: Subjective Interval history: Mrs Quick is feeling ok today and frustrated that she can not get rest in the hospital. She was moved to CCU because she had rapid afib which has slowed on IV diltiazem. She has chronic afib and is anticoagulated with aspirin per her PCP. No chest pain. No shortness of breath. Dr Mccain saw her yesterday. Echo pending. A fib rate around 100, in around 90 when I examined her. Exam - Constitutional Vitals: Period Temp Pulse Resp BP Sys/Callejas Pulse Ox Last 24 Hr 97.8 F-98.6 F 97-134 18-20 142-163/67-109 95-96 General appearance: normal weight, no acute distress - Eye Eye exam: Present: EOMI. Absent: scleral icterus - Respiratory Respiratory exam: Present: clear to auscultation bilaterally - Cardiovascular Cardiovascular exam: Present: irregular rhythm - GI/Abdominal GI/Abdominal exam: Present: normal bowel sounds, soft. Absent: tenderness - Extremities Exam Extremities exam: Absent: edema - Neurological Exam Neurological exam: Present: alert, oriented X3 - Skin Skin exam: Present: warm, dry Results - Labs CBC & BMP: 08/26/16 03:04 08/26/16 03:04 Lab Results: I have reviewed the past 24 hour labs
[2016-08-26] MEDS ORDERED: METOPROLOL TARTRATE 25 MG TABLET PO SCH (12:00)
--- NOTE | 2016-08-26 12:09 | Cardiology Progress Note ---
<Angelita Mckeon - Last Filed: 08/26/16 11:28> Assessment and Plan (1) Atrial fibrillation with RVR Status: Acute Assessment and plan: SEE PLAN OF CARE LISTED BELOW. Current Visit: Yes (2) Hypomagnesemia Status: Acute Assessment and plan: SEE PLAN OF CARE LISTED BELOW. Current Visit: Yes (3) Altered mental status Status: Resolved Assessment and plan: SEE PLAN OF CARE LISTED BELOW. Current Visit: Yes (4) Dementia Status: Chronic Assessment and plan: SEE PLAN OF CARE LISTED BELOW. Current Visit: Yes (5) Hypokalemia Status: Acute Assessment and plan: SEE PLAN OF CARE LISTED BELOW. Current Visit: Yes (6) UTI (urinary tract infection) Status: Acute Assessment and plan: SEE PLAN OF CARE LISTED BELOW. Current Visit: Yes (7) Hypertension Status: Chronic Assessment and plan: SEE PLAN OF CARE LISTED BELOW. Current Visit: Yes (8) Dyslipidemia Status: Chronic Assessment and plan: SEE PLAN OF CARE LISTED BELOW. Current Visit: Yes (9) Cardiac murmur Status: Acute Assessment and plan: SEE PLAN OF CARE LISTED BELOW. Current Visit: Yes Cardiology - PN: Subj Interval history: Health Actuary: New to cardiology (Adán) SUMMARY : Ms. Quick, 76-year-old female was admitted to [facility] with altered mental status, urinary tract infection and atrial fibrillation with rapid ventricular response. Patient has a past medical history of hypertension, paroxysmal atrial fibrillation, dyslipidemia and dementia. Cardiology was consulted in order to manage patient' s atrial fibrillation with rapid ventricular response. She was asymptomatic. Patient was started on IV Cardizem Friday afternoon. Historically, it appears that patient has not been anticoagulated. Per her report, she has been on aspirin for anticoagulation only. She has never been on Coumadin or NOAC. INR was 8.4 on arrival, now 1.1. No Coumadin listed as a home medication. Thought to be a lab error. At this point, I feel the patient is not a good candidate for anticoagulation as she has history of dementia and frequent falls. Baby aspirin has been added. August UPDATE : Patient was seen and examined on the telemetry unit. This morning, she is awake and alert. She remains in atrial fibrillation. At time of exam, her rate was well controlled, ranging from 90-100. She denies chest pain, heaviness and tightness. She also is without palpitations/heart racing and shortness of breath. Potassium this morning is 3.6, patient is on replacement protocol. Magnesium is noted to be 1.2, currently replacing per protocol. Echocardiogram has been ordered, results are pending. Blood pressure is suboptimally controlled, at this point I will also add a beta- nasra in hopes to achieve rate control as well as optimal blood pressure. Labs have been reviewed. Will discuss case with Dr. Stringer and await his further recommendations. ASSESSMENT/PLAN: 1. ATRIAL FIBRILLATION WITH RVR - History of PAF. Could be related to her hypokalemia and hypomagnesemia. TSH has been added to patient's lab draw. Currently being replaced per protocol. She remains in atrial fibrillation. Currently, she is rate controlled. At time of exam, heart rates were around 90 bpm. At this point, I will transition patient to p.o. diltiazem. I will also add Lopressor. At this point, I do not feel the patient is a good anticoagulation candidate as she has history of dementia and frequent falls. I will add baby aspirin today, further discuss this with Dr. Stringer and await his recommendations. 2. ACUTE URINARY TRACT INFECTION - Continue Cipro. 3. HYPOKALEMIA - Continue to replace per protocol. Daily BMP. 4. HYPOMAGNESEMIA - Continue to replace per protocol. Monitor with daily magnesium. 5. CARDIAC MURMUR - Echocardiogram results are pending. 6. ALTERED MENTAL STATUS - Improved. Thought to be secondary to patient UTI. Continue antibiotics. 7. DEMENTIA - Clinically stable. Continue current plan of care with Namenda. 8. DYSLIPIDEMIA - Continue current plan of care with lipid lowering agent. 9. HYPERTENSION - Suboptimally controlled this morning. I have added a beta- nasra in hopes to achieve rate control as well as optimal blood pressure. Will further adjust as needed throughout her hospitalization. Further plan and addendum to follow per Dr. Stringer. Exam (Progress Note) - Constitutional Vitals: Period Temp Pulse Resp BP Sys/[place] Pulse Ox Last 24 Hr 97.8 F-98.6 F 97-134 18-20 142-163/67-109 95-96 Exam: General: Appears well with no apparent distress. Appears comfortable. HEENT: PERRL, normocephalic, atraumatic. Mucous membranes moist. No jaundice noted. Conjunctiva moist and clear, sclerae anicteric Neck: No JVD/HJR, no thyromegaly or lymphadenopathy noted. No carotid bruit appreciated Cardiac: Irregular rhythm. 1-2/6 systolic ejection murmur along left sternal border. Lungs: Clear to auscultation without accessory muscle use to assist the respiratory pattern. Not requiring oxygen. Abdomen: Soft, bowel sounds normoactive. Nontender and nondistended. No abdominal bruit or thrill noted. No masses noted. Extremities: No clubbing, cyanosis noted. No edema noted. Upper extremity pulses 2+. Lower extremity pulses 2+. Capillary refill less than 3 seconds. Skin: No unusual lesions or rashes. No skin breakdown appreciated. Neuro: Awake, alert and oriented 3. Moves all extremities well without hemiparesis or paralysis. Result/EKG - Labs CBC & BMP: 08/26/16 03:04 08/26/16 03:04 Lab Results: I have reviewed the past 24 hour labs Labs: Laboratory Results - last 24 hr 08/25/16 08/26/16 08/26/16 11:00 03:04 03:04 WBC 9.3 RBC 3.40 L Hgb 10.2 L Hct 30.2 L MCV 88.8 MCH 30 MCHC 33.8 RDW 14.9 Plt Count 277 MPV 9.2 L Neut % (Auto) 75.8 H Lymph % (Auto) 15.3 L [place] % (Auto) 6.8 Eos % (Auto) 1.6 Baso % (Auto) 0.3 Neut # (Auto) 7.0 Lymph # (Auto) 1.4 [place] # (Auto) 0.6 Eos # (Auto) 0.2 Baso # (Auto) 0.0 Immature Gran % 0.2 Nucleated RBC % 0.0 Immature Gran # 0.02 Nucleated RBCs # 0.00 INR 1.1 PT Patient/Control Mix 11.4 Circ Anticoag PTT 28.0 Sodium Potassium Chloride Carbon Dioxide Anion Gap BUN Creatinine GFR Calculation BUN/Creatinine Ratio Glucose Calculated Osmolality Calcium Magnesium Urine Color [place] Urine Appearance Cloudy Urine pH 6.0 Ur Specific [place] 1.007 Urine Protein 100 Urine Glucose (UA) >=500 Urine Ketones Negative Urine Blood Moderate Urine Nitrate Positive H Urine Bilirubin Negative Urine Urobilinogen 2.0 H Urine Leukocytes Large H Urine RBC 138 Urine WBC 1621 Urine WBC Clumps Many Ur Culture Indicated? Results to follow 08/26/16 03:04 WBC RBC Hgb Hct MCV MCH MCHC RDW Plt Count MPV Neut % (Auto) Lymph % (Auto) [place] % (Auto) Eos % (Auto) Baso % (Auto) Neut # (Auto) Lymph # (Auto) [place] # (Auto) Eos # (Auto) Baso # (Auto) Immature Gran % Nucleated RBC % Immature Gran # Nucleated RBCs # INR PT Patient/Control Mix Circ Anticoag PTT Sodium 141 Potassium 3.6 Chloride 104 Carbon Dioxide 27 Anion Gap 13.6 BUN 3 L Creatinine 0.40 L GFR Calculation 84 BUN/Creatinine Ratio 7.00 Glucose 100 Calculated Osmolality 277.3 Calcium 8.0 L Magnesium 1.2 L Urine Color Urine Appearance Urine pH Ur Specific [place] Urine Protein Urine Glucose (UA) Urine Ketones Urine Blood Urine Nitrate Urine Bilirubin Urine Urobilinogen Urine Leukocytes Urine RBC Urine WBC Urine WBC Clumps Ur Culture Indicated? <Caio Stringer - Last Filed: 08/26/16 17:57> Exam (Progress Note) - Constitutional Vitals: Period Temp Pulse Resp BP Sys/[place] Pulse Ox Last 24 Hr 97.8 F-98.6 F 97-111 18-20 136-163/67-96 95-96 Result/EKG - Labs CBC & BMP: 08/26/16 03:04 08/26/16 03:04 Labs: Laboratory Results - last 24 hr 08/26/16 08/26/16 08/26/16 03:02 03:04 03:04 WBC 9.3 RBC 3.40 L Hgb 10.2 L Hct 30.2 L MCV 88.8 MCH 30 MCHC 33.8 RDW 14.9 Plt Count 277 MPV 9.2 L Neut % (Auto) 75.8 H Lymph % (Auto) 15.3 L [place] % (Auto) 6.8 Eos % (Auto) 1.6 Baso % (Auto) 0.3 Neut # (Auto) 7.0 Lymph # (Auto) 1.4 [place] # (Auto) 0.6 Eos # (Auto) 0.2 Baso # (Auto) 0.0 Immature Gran % 0.2 Nucleated RBC % 0.0 Immature Gran # 0.02 Nucleated RBCs # 0.00 INR 1.1 PT Patient/Control Mix 11.4 Circ Anticoag PTT 28.0 Sodium Potassium Chloride Carbon Dioxide Anion Gap BUN Creatinine GFR Calculation BUN/Creatinine Ratio Glucose Calculated Osmolality Calcium Magnesium Free T4 0.97 TSH 3rd Generation 3.470 08/26/16 03:04 WBC RBC Hgb Hct MCV MCH MCHC RDW Plt Count MPV Neut % (Auto) Lymph % (Auto) [place] % (Auto) Eos % (Auto) Baso % (Auto) Neut # (Auto) Lymph # (Auto) [place] # (Auto) Eos # (Auto) Baso # (Auto) Immature Gran % Nucleated RBC % Immature Gran # Nucleated RBCs # INR PT Patient/Control Mix Circ Anticoag PTT Sodium 141 Potassium 3.6 Chloride 104 Carbon Dioxide 27 Anion Gap 13.6 BUN 3 L Creatinine 0.40 L GFR Calculation 84 BUN/Creatinine Ratio 7.00 Glucose 100 Calculated Osmolality 277.3 Calcium 8.0 L Magnesium 1.2 L Free T4 TSH 3rd Generation
[2016-08-26 12:36] LABS: Free T4 (Free Thyroxine) 0.97 NG/DL (0.76-1.46); Thyroid Stimulating Hormone 3.47 uIU/ml (0.358-3.74)
[2016-08-26] MEDS: ASPIRIN EC 81 MG TABLET PO SCH (13:45)
[2016-08-26] MEDS: DILTIAZEM CD 180 MG CAPSULE PO SCH ×2 (13:45→20:18)
[2016-08-26] MEDS: METOPROLOL SUCCINATE XL 50 MG TABLET PO SCH (20:18)
[2016-08-26] MEDS: MIRTAZAPINE 15 MG TABLET PO SCH (20:19)
[2016-08-27] MEDS: CIPROFLOXACIN INJ 400 MG in PREMIX 1 EACH IV SCH ×2 (01:20→13:48)
[2016-08-27 05:02] LABS: Basophils % 0.4 % (0.0-0.8); Eosinophils # 0.2 10*3/uL (0.0-0.87); Eosinophils % 2.5 % (0.00-10.9); Hematocrit 28.1 VOL% (35.7-47.0); Hemoglobin 9.5 GM/DL (12.0-16.0); Immature Granulocytes % 0.6 %; Immature Granulocytes Absolute 0.04 #; Lymphocytes # 1.3 10*3/uL (1.4-4.0); Lymphocytes % 19.5 % (21.3-54.2); Mean Corpuscular HGB Conc 33.8 GM/DL (32-36); Mean Corpuscular Hemoglobin 31 PG (27-34); Mean Corpuscular Volume 90.6 FL (87-102); Mean Platelet Volume 8.9 FL (9.6-12.0); Monocytes # 0.6 10*3/uL (0.11-0.8); Monocytes % 8.8 % (1.7-12.7); Neutrophils # 4.6 10*3/uL (1.4-7.4); Neutrophils % 68.2 % (38.7-73.9); Platelet Count 283 T/CUMM (130-400); Red Cell Distribution Width 15.1 % (9.3-17.3); White Blood Count 6.8 T/CUMM (4-12)
[2016-08-27 05:38] LABS: Calcium 8.1 MG/DL (8.5-10.1); Magnesium 2.2 MG/DL (1.8-2.4); Osmolality,Calculated 279.1 MOS/KG (273-304); Potassium 3.3 MMOL/L (3.5-5.1)
[2016-08-27] MEDS: POTASSIUM CHLORIDE RIDER 10 MEQ in PREMIX 1 EACH IV PRN ×3 (05:51→10:48)
--- NOTE | 2016-08-27 07:16 | EKG Report ---
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
[2016-08-27] MEDS: ATORVASTATIN 10 MG TABLET PO SCH (10:45)
[2016-08-27] MEDS: DOCUSATE SODIUM 100 MG CAPSULE PO SCH (10:45)
[2016-08-27] MEDS: ASPIRIN EC 81 MG TABLET PO SCH (10:46)
[2016-08-27] MEDS: DILTIAZEM CD 180 MG CAPSULE PO SCH (10:46)
[2016-08-27] MEDS: DESITIN 4OZ/NYSTATIN 15 GRAM MIXTURE PASTE TOP SCH (10:46)
[2016-08-27] MEDS: MEMANTINE 10 MG TABLET PO SCH (10:46)
[2016-08-27] MEDS: SERTRALINE 50 MG TABLET PO SCH (10:47)
[2016-08-27] MEDS: METOPROLOL SUCCINATE XL 50 MG TABLET PO SCH (10:47)
--- NOTE | 2016-08-27 11:41 | ECHO Report ---
Susan Quick 08/27/2016 Exam Date: 09:26 Referring Physician: Technologist: Age: 76 Ht (in): Wt (lb): FExam [facility] Gender: Echo [id number]: Indications: BP: / HR: SinusRhythm: Technical Quality: IMPRESSIONS 2+ left atrial enlargement Normal LV systolic function with ejection fraction estimated be 60% without segmental wall motion mildly Aortic sclerosis without stenosis Trace to 1+ mitral and tricuspid regurgitation with RVSP 42 mmHg plus RAP MEASUREMENTS (Male / Female) Normal Values 2D ECHO LV Diastolic Diameter PLAX 4.5 cm 4.2 - 5.9 / 3.9 - 5.3 cm LV Systolic Diameter PLAX 3.0 cm LV Fractional Shortening PLAX 32.8 % IVS Diastolic Thickness 0.8 cm 0.6 - 1.0 / 0.6 - 0.9 cm LVPW Diastolic Thickness 0.8 cm 0.6 - 1.0 / 0.6 - 0.9 cm RV Internal Dim ED PLAX 2.7 cm Aortic Root Diameter 2.5 cm LA Systolic Diameter LX 4.2 cm 3.0 - 4.0 / 2.7 - 3.8 cm DOPPLER TR Peak Velocity 322.0 cm/s TR Peak Gradient 41.5 mmHg FINDINGS Left Ventricle Right Ventricle Right Atrium Left Atrium Mitral Valve Aortic Valve Tricuspid Valve Pulmonic Valve Pericardium Aorta Caio Stringer (Electronically Signed) 27 August 2016 Final Date: 11:37
[2016-08-27 12:18] VITALS: BP 130/81
--- NOTE | 2016-08-27 12:39 | Discharge Summary ---
<Olesya,Augusta Kevin - Last Filed: 08/27/16 14:06> Hospital Course - Hospital Course Hospital Course: Ms. Quick is a chronically ill 76-year-old female admitted by the hospitalist from her assisted living center on 08/19/2016 with altered mental status due to hyponatremia, hypokalemia, and urinary tract infection. She also had an elevated INR but there is no record of receiving any anticoagulation agent. INR was repeated in the morning and it was shown to be normal. This most likely was a lab error. Patient's electrolyte abnormalities were slowly corrected and her mentation improved to baseline. Cardiology was consulted due to a development of A. fib with RVR. Her rate is now controlled on diltiazem but she is a poor candidate for anticoagulation due to her fall risk and dementia. Patient will follow-up with Dr. Stringer in 2 weeks. Patient's urine cultures grew E. coli sensitive to Cipro so she will be discharged on this for another 7 days. Cardiology has adjusted all of her medicines for hypertension and A. fib and she will be discharged on these new meds. Patient has reached maximum hospital benefit and will be transferred back to her assisted today. Care was coordinated with Dr. Mitchell, the hospitalist, cardiology, nursing, case management, and patient. Care coordination, chart review, and completed discharge paperwork took approximately 40 minutes. - Time spent with patient Time with patient DS: Greater than 30 minutes Diagnosis - Discharge Diagnosis (1) Altered mental status Status: Resolved (2) Hyponatremia Status: Resolved (3) Dementia Status: Chronic (4) Renal insufficiency Status: Resolved (5) Hypokalemia Status: Acute (6) Atrial fibrillation with RVR Status: Resolved (7) UTI (urinary tract infection) Status: Resolved (8) Hypertension Status: Chronic (9) Dyslipidemia Status: Chronic Specialty Discharge - Follow Up or Referrals Follow up with: your, PCP [Other] (1 week with BMP) Javier Mccain MD [Physician] - 09/11/16 8:00 am (Patient will need a follow- up appointment with Dr. mccain in 2 weeks with CBC, BMP, magnesium and EKG. ) Denia Hollins MD [Physician] - 09/26/16 1:30 pm (new afib) Discharge Plan - Discharge Data Disposition: Disch/Xfer to Snf - Discharge Medications New Diltiazem Cd Cap [Cardizem CD] 180 mg PO BID capsule Metoprolol Succinate Xl [Toprol Xl] 50 mg PO BID tablet Ciprofloxacin Tab [Cipro Tab] 250 mg PO BID #10 tablet Continue LORazepam TAB [Ativan Tab] 1 mg PO Q6H PRN PRN Reason: Anxiety Aspirin EC Tab 325 mg PO DAILY Memantine [Namenda] 10 mg PO BID Senna Tab [Senokot] 8.6 mg PO DAILY Omeprazole [Prilosec] 20 mg PO DAILY Atorvastatin [Lipitor] 10 mg PO DAILY Docusate Sodium 100 mg PO DAILY Mirtazapine 15 mg PO QPM Sertraline [Zoloft] 50 mg PO DAILY Discontinued traMADol TAB [Ultram] 50 mg PO Q6H PRN PRN Reason: Pain Furosemide Tab [Lasix Tab] 40 mg PO MOWEFR Nadolol 40 mg PO DAILY Losartan Potassium 100 mg PO DAILY hydroCHLOROthiazide [Hydrochlorothiazide] 12.5 mg PO DAILY cloNIDine TAB [Catapres Tab] 0.1 mg PO DAILY PRN PRN Reason: Blood Pressure-Decreased - Follow Up or Referral Follow Up: your, PCP [Other] (1 week with BMP) Javier Mccain MD [Physician] - 09/11/16 8:00 am (Patient will need a follow- up appointment with Dr. mccain in 2 weeks with CBC, BMP, magnesium and EKG. ) Denia Hollins MD [Physician] - 09/26/16 1:30 pm (new afib) - Forms/Instructions Exam - Constitutional Vitals: Period Temp Pulse Resp BP Sys/[place] Pulse Ox Last 24 Hr 96.7 F-98.5 F 67-101 16-20 117-132/65-82 95-99 Exam: 76-year-old female, no acute distress Chest clear CV irregularly irregular Abdomen soft and nontender Extremities no edema Discharge Results Procedures and tests throughout hospitalization: Pending Orders 08/28/16 04:00 BMP w/ Mg [Basic Metabolic Panel w/Mg] IN AM CBC [Comp Blood Count Auto Diff] IN AM 08/29/16 04:00 BMP w/ Mg [Basic Metabolic Panel w/Mg] IN AM CBC [Comp Blood Count Auto Diff] IN AM 08/30/16 04:00 BMP w/ Mg [Basic Metabolic Panel w/Mg] IN AM CBC [Comp Blood Count Auto Diff] IN AM Labs on day of discharge: Labs from last 24 hours 08/27/16 08/27/16 03:59 03:59 WBC 6.8 RBC 3.10 L Hgb 9.5 L Hct 28.1 L MCV 90.6 MCH 31 MCHC 33.8 RDW 15.1 Plt Count 283 MPV 8.9 L Neut % (Auto) 68.2 Lymph % (Auto) 19.5 L [place] % (Auto) 8.8 Eos % (Auto) 2.5 Baso % (Auto) 0.4 Neut # (Auto) 4.6 Lymph # (Auto) 1.3 L [place] # (Auto) 0.6 Eos # (Auto) 0.2 Baso # (Auto) 0.0 Immature Gran % 0.6 Nucleated RBC % 0.0 Immature Gran # 0.04 Nucleated RBCs # 0.00 Sodium 142 Potassium 3.3 L Chloride 105 Carbon Dioxide 26 Anion Gap 14.3 BUN 4 L Creatinine 0.50 L GFR Calculation 78 BUN/Creatinine Ratio 8.00 Glucose 92 Calculated Osmolality 279.1 Calcium 8.1 L Magnesium 2.2 DS: Provider Date of admission: 08/19/16 15:11 Primary care physician: . No PCP Attending physician on admission: Stacie Frazier MD Consults: 08/19/16 17:57 Consult to Dietitian [CONS] Routine Reason for Dietitian: Dietary Consult 08/22/16 12:26 Consult to Occupational Therapy [CONS] Routine Reason for Occupational Therapy: Evaluate and Treat Consult to Physical Therapy [CONS] Routine Reason for Physical Therapy: Evaluate and Treat 08/22/16 14:21 Consult to Case Mgmt/Social Srvs [CONS] Routine Reason for Case Mgmt/Social Srvs: Swingbed/SNF/Chcf 08/25/16 12:28 Consult to Physician [CONS] Routine Comment: afib RVR Consulting Provider: Consult to Specialist Group: Cardiology When should Consulting Provider be notified: Now Person Notified: Dr Mccain Date Notified: 08/25/16 Time Notified: 14:02 Discharging clinician: INDIO Rodriguez Expected date of discharge: 08/27/16 <Corinna Mitchell - Last Filed: 08/27/16 14:46> Diagnosis - Discharge Diagnosis (1) Atrial fibrillation with RVR Status: Resolved (2) Hyponatremia Status: Resolved (3) Dementia Status: Chronic (4) Hypokalemia Status: Acute (5) UTI (urinary tract infection) Status: Resolved Discharge Plan - Discharge Data Condition at Discharge: Stable Discharge Diet: heart healthy Activity: as per physical therapy, increase activity as tolerated
--- NOTE | 2016-08-27 12:43 | Cardiology Progress Note ---
Assessment and Plan - Time spent with patient Time spent with patient: Less than 30 minutes Time spent discussing smoking cessation with patient: 3 to 10 minutes Cardiology - PN: Subj Interval history: Ms. Quick feels well today. She is requesting some soup for lunch. She says that she did not eat much or anything for breakfast "I fell asleep". She did not have any chest pain shortness of breath or dizziness. Exam (Progress Note) - Constitutional Vitals: Period Temp Pulse Resp BP Sys/[place] Pulse Ox Last 24 Hr 96.7 F-98.5 F 67-101 16-20 117-132/65-82 95-99 General appearance: no acute distress, under weight - Head Head exam: Present: normal inspection, normocephalic, atraumatic - Neck Neck exam: Present: normal inspection - Respiratory Respiratory exam: Absent: stridor, wheezes - Cardiovascular Cardiovascular exam: Present: irregular rhythm. Absent: bradycardia, diastolic murmur, tachycardia - GI/Abdominal GI/Abdominal exam: Present: soft. Absent: tenderness - Extremities Exam Extremities exam: Absent: edema Result/EKG - Labs CBC & BMP: 08/27/16 03:59 08/27/16 03:59 Labs: Laboratory Results - last 24 hr 08/27/16 08/27/16 03:59 03:59 WBC 6.8 RBC 3.10 L Hgb 9.5 L Hct 28.1 L MCV 90.6 MCH 31 MCHC 33.8 RDW 15.1 Plt Count 283 MPV 8.9 L Neut % (Auto) 68.2 Lymph % (Auto) 19.5 L [place] % (Auto) 8.8 Eos % (Auto) 2.5 Baso % (Auto) 0.4 Neut # (Auto) 4.6 Lymph # (Auto) 1.3 L [place] # (Auto) 0.6 Eos # (Auto) 0.2 Baso # (Auto) 0.0 Immature Gran % 0.6 Nucleated RBC % 0.0 Immature Gran # 0.04 Nucleated RBCs # 0.00 Sodium 142 Potassium 3.3 L Chloride 105 Carbon Dioxide 26 Anion Gap 14.3 BUN 4 L Creatinine 0.50 L GFR Calculation 78 BUN/Creatinine Ratio 8.00 Glucose 92 Calculated Osmolality 279.1 Calcium 8.1 L Magnesium 2.2 Specialty Discharge - Follow Up or Referrals Follow up with: your, PCP [Other] (1 week) Denia Hollins MD [Physician] - 2 Weeks (new afib)
[2016-08-27] MEDS ORDERED: CIPROFLOXACIN 250 MG TABLET PO SCH (14:30)
== END 2016-08-27 14:28 | DRG 640 ==
LOC: EDBD → EDUNIT# → N.ED 11:53 → SUATTDRO 15:11 → N.EDINP 15:11 → N.CC 17:11 → N.4E 08-20 13:02 → N.TELEN 08-25 13:06
PROVIDERS: ADMIT Internal Medicine; ATTEND Internal Medicine

== ENCOUNTER 2017-06-22 08:26 | Inpatient (IN) ==
[2017-06-22 09:31] LABS: Basophils % 0.4 % (0.0-0.8); Eosinophils % 0.4 % (0.00-10.9); Hematocrit 40.9 VOL% (35.7-47.0); Immature Granulocytes % 0.4 %; Immature Granulocytes Absolute 0.03 #; Lymphocytes # 0.8 10*3/uL (1.4-4.0); Lymphocytes % 10.9 % (21.3-54.2); Mean Corpuscular HGB Conc 34.2 GM/DL (32-36); Mean Corpuscular Hemoglobin 30 PG (27-34); Mean Corpuscular Volume 86.7 FL (87-102); Monocytes # 0.6 10*3/uL (0.11-0.8); Monocytes % 8.3 % (1.7-12.7); Neutrophils # 5.6 10*3/uL (1.4-7.4); Neutrophils % 79.6 % (38.7-73.9); Platelet Count 270 T/CUMM (130-400); Red Blood Count 4.72 MC/CUMM (3.8-5.5); Red Cell Distribution Width 15.4 % (9.3-17.3); White Blood Count 7.1 T/CUMM (4-12)
[2017-06-22 09:36] LABS: Apearance,Urine CLEAR (Clear); Bilirubin,Urine Negative (Negative); Blood, Urine Moderate mg/dL (Negative); Glucose,Urine (UA) Negative (Negative); Ketones,Urine 5 mg/dL (Negative); Nitrite,Urine Negative (Negative); Protein,Urine Negative; RBC,Urine 1 /HPF (0-4); Squamous Epithelial Cell,Urine Occasional /HPF (0-10); Urine Color Yellow (Yellow); Urine Specific Gravity 1.006 (1.001-1.035); Urine Urobilinogen < 2.0 EU/DL (0.2-1.0)
[2017-06-22 09:38] LABS: INR 1.1; PT Patient Result 11.1 SECS
[2017-06-22 09:43] LABS: Barbiturates Screen,Urine Negative (Negative); Benzodiazepines Screen,Urine Negative (Negative); Cannabinoid Screen,Urine Negative (Negative); Opiate Screen,Urine Positive (Negative); Phencyclidine Screen,Urine Negative (Negative)
[2017-06-22 09:47] LABS: Ammonia < 10 UMOL/L (11-32)
[2017-06-22 09:51] LABS: Alanine Aminotransferase 20 U/L (13-56); Albumin 4.3 G/DL (3.4-5.0); Alkaline Phosphatase 221 U/L (45-117); Aspartate Amino Transferase 32 U/L (0-37); Blood Urea Nitrogen 21 MG/DL (7-18); Glucose 82 MG/DL (74-106); Osmolality,Calculated 269.2 MOS/KG (273-304); Potassium 3.3 MMOL/L (3.5-5.1); Sodium 134 MMOL/L (136-145); Total Protein 9.2 G/DL (6.4-8.3)
[2017-06-22 10:00] LABS: ABG Base Excess 4.1 MMOL/L (-2.5-2.5); ABG HCO3 28.1 MMOL/L (20-26); ABG Oxygen Saturation 98.7 % (95-100); ABG PCO2 44.9 MM HG (35-48); ABG PH 7.422 (7.35-7.45); ABG TCO2 25.4 MMOL/L (23-27)
[2017-06-22] MEDS ORDERED: ONDANSETRON 4 MG/2 ML VIAL IV PRN (12:58)
[2017-06-22] MEDS ORDERED: ENOXAPARIN 30 MG/0.3 ML SYRINGE SUBCUT SCH (13:00)
[2017-06-22] MEDS: SODIUM CHLORIDE 0.9% 1,000 ML IV SCH (13:23)
[2017-06-22] MEDS ORDERED: PANTOPRAZOLE 40 MG TABLET PO ONE (13:30)
[2017-06-22] MEDS: NYSTATIN POWDER 15 GM BOTTLE TOP SCH (21:17)
[2017-06-22] MEDS: MEMANTINE 10 MG TABLET PO SCH (21:17)
[2017-06-22] MEDS: DILTIAZEM CD 180 MG CAPSULE PO SCH (21:17)
[2017-06-23 07:28] LABS: Basophils % 0.6 % (0.0-0.8); Eosinophils # 0.1 10*3/uL (0.0-0.87); Hematocrit 36.9 VOL% (35.7-47.0); Hemoglobin 12.5 GM/DL (12.0-16.0); Immature Granulocytes % 0.2 %; Immature Granulocytes Absolute 0.01 #; Lymphocytes # 0.8 10*3/uL (1.4-4.0); Lymphocytes % 14.3 % (21.3-54.2); Mean Corpuscular HGB Conc 33.9 GM/DL (32-36); Mean Corpuscular Hemoglobin 30 PG (27-34); Mean Corpuscular Volume 87.4 FL (87-102); Mean Platelet Volume 9.1 FL (9.6-12.0); Monocytes # 0.5 10*3/uL (0.11-0.8); Monocytes % 9.7 % (1.7-12.7); Neutrophils # 3.9 10*3/uL (1.4-7.4); Neutrophils % 74.2 % (38.7-73.9); Platelet Count 249 T/CUMM (130-400); Red Blood Count 4.22 MC/CUMM (3.8-5.5); Red Cell Distribution Width 15.6 % (9.3-17.3); White Blood Count 5.2 T/CUMM (4-12)
[2017-06-23 07:29] LABS: Calcium 9.1 MG/DL (8.5-10.1); Osmolality,Calculated 274.8 MOS/KG (273-304); Potassium 3.2 MMOL/L (3.5-5.1)
[2017-06-23 08:21] LABS: HIV Antigen/Antibody Result Nonreactive (Nonreactive)
[2017-06-23] MEDS: DILTIAZEM CD 180 MG CAPSULE PO SCH ×2 (09:18→21:54)
[2017-06-23] MEDS: SERTRALINE 50 MG TABLET PO SCH (09:18)
[2017-06-23] MEDS: ASPIRIN EC 325 MG TABLET PO SCH (09:18)
[2017-06-23] MEDS: PANTOPRAZOLE 40 MG TABLET PO SCH (09:18)
[2017-06-23] MEDS: MEMANTINE 10 MG TABLET PO SCH ×2 (09:18→21:53)
[2017-06-23] MEDS: POTASSIUM CHLORIDE 20 MEQ TABLET PO PRN ×2 (09:18→21:53)
[2017-06-23] MEDS ORDERED: TUBERCULIN SKIN TEST 0.1 ML SYRINGE INTRADERM ONE (09:28)
[2017-06-23] MEDS: NYSTATIN POWDER 15 GM BOTTLE TOP SCH ×3 (10:52→21:54)
[2017-06-23] MEDS: SODIUM CHLORIDE 0.9% 1,000 ML IV SCH (15:29)
[2017-06-23] MEDS: ZINC OXIDE PASTE 113 GM TUBE TOP SCH (21:53)
[2017-06-23] MEDS: DONEPEZIL 5 MG TABLET PO SCH (21:53)
[2017-06-24 06:57] LABS: Albumin (SPE) 3.9 G/DL (3.2-5.3); Albumin (SPE) Rel % 53.4 %; Alpha 1 (SPE) 0.3 G/DL (0.1-0.4); Alpha 1 (SPE) Rel % 4.2 %; Alpha 2 (SPE) Rel % 13.4 %; Beta (SPE) 0.9 G/DL (0.5-1.1); Beta (SPE) Rel % 13.3 %; Gamma (SPE) 1.1 G/DL (0.7-1.7); Gamma (SPE) Rel % 15.7 %; Total Protein (Chem) 7.3 G/DL (6.4-8.3)
[2017-06-24 07:49] LABS: Calcium 8.4 MG/DL (8.5-10.1); Osmolality,Calculated 277.5 MOS/KG (273-304)
[2017-06-24] MEDS ORDERED: MAGNESIUM SULF RIDER 2 GM in PREMIX 1 EACH IV PRN (08:00)
[2017-06-24] MEDS: PANTOPRAZOLE 40 MG TABLET PO SCH (08:42)
[2017-06-24] MEDS: MEMANTINE 10 MG TABLET PO SCH ×2 (08:43→21:31)
[2017-06-24] MEDS: ZINC OXIDE PASTE 113 GM TUBE TOP SCH ×2 (08:43→21:31)
[2017-06-24] MEDS: NYSTATIN POWDER 15 GM BOTTLE TOP SCH ×3 (08:43→21:31)
[2017-06-24] MEDS: SERTRALINE 50 MG TABLET PO SCH (08:43)
[2017-06-24] MEDS: ASPIRIN EC 325 MG TABLET PO SCH (08:43)
[2017-06-24] MEDS: DILTIAZEM CD 180 MG CAPSULE PO SCH ×2 (08:43→21:31)
[2017-06-24] MEDS: SODIUM CHLORIDE 0.9% 1,000 ML IV SCH ×2 (08:48→16:22)
[2017-06-24] MEDS: ACETAMINOPHEN 325 MG TABLET PO PRN (21:30)
[2017-06-24] MEDS: DONEPEZIL 5 MG TABLET PO SCH (21:31)
[2017-06-25] MEDS: SODIUM CHLORIDE 0.9% 1,000 ML IV SCH (06:19)
[2017-06-25] MEDS: ACETAMINOPHEN 325 MG TABLET PO PRN ×2 (06:21→11:45)
[2017-06-25 06:55] LABS: Calcium 8.7 MG/DL (8.5-10.1); Osmolality,Calculated 281.1 MOS/KG (273-304); Potassium 3.8 MMOL/L (3.5-5.1)
[2017-06-25] MEDS: PANTOPRAZOLE 40 MG TABLET PO SCH (08:08)
[2017-06-25] MEDS: DILTIAZEM CD 180 MG CAPSULE PO SCH (08:08)
[2017-06-25] MEDS: MEMANTINE 10 MG TABLET PO SCH (08:08)
[2017-06-25] MEDS: ASPIRIN EC 325 MG TABLET PO SCH (08:08)
[2017-06-25] MEDS: ZINC OXIDE PASTE 113 GM TUBE TOP SCH (08:09)
[2017-06-25] MEDS: SERTRALINE 50 MG TABLET PO SCH (08:09)
[2017-06-25] MEDS: NYSTATIN POWDER 15 GM BOTTLE TOP SCH (08:09)
[2017-06-25 11:50] VITALS: BP 120/54
== END 2017-06-25 13:03 | DRG 71 ==
LOC: EDUNIT# → EDBD → N.ED 08:26 → N.EDINP 11:28 → SUATTDRO 11:28 → N.EDINP 15:00 → N.5E 15:48
PROVIDERS: ADMIT Hospitalist; ATTEND Internal Medicine

== ENCOUNTER 2022-03-11 19:13 | Inpatient (IN) ==
[2022-03-11] MEDS ORDERED: ONDANSETRON 4 MG/2 ML VIAL IV PRN (21:48)
[2022-03-11] MEDS ORDERED: MORPHINE 2 MG/1 ML SYRINGE IV PRN ×2 (21:48→22:54)
[2022-03-11 21:51] LABS: Basophils % 0.3 % (0.0-0.8); Eosinophils % 0.4 % (0.00-10.9); Hematocrit 37.1 VOL% (35.7-47.0); Hemoglobin 12.7 GM/DL (12.0-16.0); Immature Granulocytes % 0.4 %; Immature Granulocytes Absolute 0.03 #; Lymphocytes # 1.1 10*3/uL (1.4-4.0); Lymphocytes % 14.8 % (21.3-54.2); Mean Corpuscular HGB Conc 34.2 GM/DL (32-36); Mean Corpuscular Volume 86.7 FL (87-102); Mean Platelet Volume 8.6 FL (9.6-12.0); Monocytes # 0.5 10*3/uL (0.11-0.8); Monocytes % 6.4 % (1.7-12.7); Neutrophils % 77.7 % (38.7-73.9); Platelet Count 239 T/CUMM (130-400); Red Blood Count 4.28 MC/CUMM (3.8-5.5); Red Cell Distribution Width 15.1 % (9.3-17.3); White Blood Count 7.7 T/CUMM (4-12)
[2022-03-11] MEDS ORDERED: SODIUM CHLORIDE 0.9% 1,000 ML IV STA (21:54)
[2022-03-11 22:02] LABS: PT Patient Result 11.4 SECS (10.1-12.1); Partial Thromboplastin Time 24.5 SECS (23.7-32.9)
[2022-03-11 22:14] LABS: Albumin 3.6 G/DL (3.4-5.0); Bilirubin,Total 0.4 MG/DL (0.20-1.00); Calcium 9.4 MG/DL (8.5-10.1); Osmolality,Calculated 261.7 MOS/KG (273-304); Potassium 3.3 MMOL/L (3.5-5.1); Total Protein 7.6 G/DL (6.4-8.2)
[2022-03-11] MEDS ORDERED: POTASSIUM CHLORIDE 20 MEQ TABLET PO STA (22:19)
[2022-03-11] MEDS ORDERED: POTASSIUM CHLORIDE RIDER 10 MEQ/100 ML PREMIX IV PRN (22:54)
[2022-03-11] MEDS ORDERED: MAGNESIUM SULF RIDER 4 GM/100 ML PREMIX IV PRN (22:54)
[2022-03-11] MEDS ORDERED: SIMETHICONE CHEW 125 MG TABLET PO PRN (22:54)
[2022-03-11] MEDS ORDERED: hydrALAZINE 20 MG/1 ML VIAL IV PRN (22:54)
[2022-03-11] MEDS ORDERED: MAGNESIUM SULF RIDER 2 GM/50 ML PREMIX IV PRN (22:54)
[2022-03-11] MEDS ORDERED: ACETAMINOPHEN 325 MG TABLET PO PRN (22:54)
[2022-03-11] MEDS ORDERED: POTASSIUM CHLORIDE 20 MEQ TABLET PO PRN (22:54)
[2022-03-12 05:00] LABS: Basophils % 0.1 % (0.0-0.8); Eosinophils % 0.1 % (0.00-10.9); Hematocrit 38.2 VOL% (35.7-47.0); Hemoglobin 12.8 GM/DL (12.0-16.0); Immature Granulocytes % 0.4 %; Immature Granulocytes Absolute 0.04 #; Lymphocytes # 0.8 10*3/uL (1.4-4.0); Lymphocytes % 8.1 % (21.3-54.2); Mean Corpuscular HGB Conc 33.5 GM/DL (32-36); Mean Corpuscular Volume 87.8 FL (87-102); Mean Platelet Volume 9.1 FL (9.6-12.0); Monocytes # 0.7 10*3/uL (0.11-0.8); Monocytes % 6.6 % (1.7-12.7); Neutrophils % 84.7 % (38.7-73.9); Platelet Count 246 T/CUMM (130-400); Red Blood Count 4.35 MC/CUMM (3.8-5.5); Red Cell Distribution Width 14.8 % (9.3-17.3)
[2022-03-12] MEDS: LEVOTHYROXINE 25 MCG TABLET PO SCH (05:24)
[2022-03-12] MEDS ORDERED: CLINDAMYCIN INJ 900 MG/50 ML PREMIX IV ONE (06:48)
[2022-03-12] MEDS: DILTIAZEM CD 120 MG CAPSULE PO SCH ×2 (09:00→20:18)
[2022-03-12] MEDS: MEMANTINE 10 MG TABLET PO SCH ×2 (09:02→20:19)
[2022-03-12] MEDS: POTASSIUM CHLORIDE 20 MEQ TABLET PO SCH (09:02)
[2022-03-12] MEDS: CALCIUM (CARBONATE)/VITAMIN D 600 MG-400 UNIT TABLET PO SCH (09:02)
[2022-03-12] MEDS: FUROSEMIDE 40 MG TABLET PO SCH (09:02)
[2022-03-12] MEDS: DOCUSATE SODIUM 100 MG CAPSULE PO SCH ×2 (09:02→20:18)
[2022-03-12] MEDS: SENNA 8.6 MG TABLET PO SCH (09:02)
[2022-03-12] MEDS: PANTOPRAZOLE 40 MG TABLET PO SCH (09:02)
[2022-03-12] MEDS: MULTIVITAMIN (CENTRUM) TABLET PO SCH (09:02)
[2022-03-12] MEDS: buPROPion 75 MG TABLET PO SCH (09:03)
[2022-03-12] MEDS: METOPROLOL SUCCINATE XL 50 MG TABLET PO SCH ×2 (09:03→20:19)
[2022-03-12] MEDS ORDERED: buprenorphine HCL 0.3 MG/ML VIAL ONE (10:06)
[2022-03-12] MEDS ORDERED: KETAMINE 500 MG/10 ML VIAL ONE (10:06)
[2022-03-12] MEDS ORDERED: ePHEDrine 50 MG/ML VIAL ONE ×2 (10:57→12:19)
[2022-03-12] MEDS ORDERED: MAGNESIUM HYDROXIDE SUSP 30 ML UDCUP PO PRN (11:13)
[2022-03-12] MEDS ORDERED: EPINEPHrine 1 MG/ML VIAL ONE (11:17)
[2022-03-12] MEDS ORDERED: LACTATED RINGERS 1,000 ML IV ONE (11:17)
[2022-03-12] MEDS ORDERED: SODIUM CHLORIDE 0.9% 100 ML IV ONE (11:17)
[2022-03-12] MEDS ORDERED: propofoL 200 MG/20 ML VIAL IV ONE (11:25)
[2022-03-12] MEDS ORDERED: BACITRACIN OINT 0.9 GM PACK TOP ONE (11:39)
[2022-03-12 12:17] LABS: Bacteria,Urine Occasional /HPF (Few); RBC,Urine <1 /HPF (0-4); Urine Appearance Clear (Clear); Urine Color Yellow (Yellow)
[2022-03-12 12:18] LABS: Bilirubin,Urine Negative (Negative); Blood, Urine Negative (Negative); Glucose,Urine (UA) Negative (Negative); Ketones,Urine Negative (Negative); Nitrite,Urine Negative (Negative); Protein,Urine Negative (Negative); Urine Specific Gravity 1.015 (1.001-1.035); Urine Urobilinogen 0.2 eU/dL (<2.0)
[2022-03-12] MEDS ORDERED: ePHEDrine 50 MG/ML VIAL IV PRN (12:26)
[2022-03-12] MEDS: CLINDAMYCIN INJ 900 MG/50 ML PREMIX IV SCH ×2 (15:03→22:35)
[2022-03-12] MEDS: ATORVASTATIN 20 MG TABLET PO SCH (20:19)
[2022-03-12] MEDS: DONEPEZIL 5 MG TABLET PO SCH (20:19)
[2022-03-13] MEDS: LEVOTHYROXINE 25 MCG TABLET PO SCH (05:06)
[2022-03-13] MEDS: FONDAPARINUX 2.5 MG/0.5 ML SYRINGE SUBCUT SCH (05:08)
[2022-03-13 06:42] LABS: Calcium 8.6 MG/DL (8.5-10.1); Osmolality,Calculated 259.7 MOS/KG (273-304); Potassium 4.2 MMOL/L (3.5-5.1)
[2022-03-13 06:45] LABS: Basophils % 0.1 % (0.0-0.8); Eosinophils % 0.3 % (0.00-10.9); Hematocrit 27.1 VOL% (35.7-47.0); Immature Granulocytes % 0.4 %; Immature Granulocytes Absolute 0.03 #; Lymphocytes % 13.9 % (21.3-54.2); Mean Corpuscular HGB Conc 32.8 GM/DL (32-36); Monocytes # 0.6 10*3/uL (0.11-0.8); Neutrophils % 77.3 % (38.7-73.9); Platelet Count 172 T/CUMM (130-400); Red Blood Count 3.01 MC/CUMM (3.8-5.5); Red Cell Distribution Width 15.2 % (9.3-17.3); White Blood Count 6.9 T/CUMM (4-12)
[2022-03-13 06:47] LABS: Hemoglobin 8.9 GM/DL (12.0-16.0)
[2022-03-13] MEDS ORDERED: MIRTAZAPINE 15 MG TABLET PO SCH (09:00)
[2022-03-13] MEDS: FUROSEMIDE 40 MG TABLET PO SCH (09:43)
[2022-03-13] MEDS: ASPIRIN CHEW 81 MG TABLET PO SCH (09:43)
[2022-03-13] MEDS: MULTIVITAMIN (CENTRUM) TABLET PO SCH (09:43)
[2022-03-13] MEDS: MEMANTINE 10 MG TABLET PO SCH ×2 (09:44→21:13)
[2022-03-13] MEDS: POTASSIUM CHLORIDE 20 MEQ TABLET PO SCH (09:49)
[2022-03-13] MEDS: buPROPion 75 MG TABLET PO SCH (09:49)
[2022-03-13] MEDS: DILTIAZEM CD 120 MG CAPSULE PO SCH ×2 (09:49→21:13)
[2022-03-13] MEDS: SENNA 8.6 MG TABLET PO SCH (09:50)
[2022-03-13] MEDS: DOCUSATE SODIUM 100 MG CAPSULE PO SCH ×2 (09:50→21:13)
[2022-03-13] MEDS: PANTOPRAZOLE 40 MG TABLET PO SCH (09:50)
[2022-03-13] MEDS: METOPROLOL SUCCINATE XL 50 MG TABLET PO SCH ×2 (09:50→21:13)
[2022-03-13] MEDS: CALCIUM (CARBONATE)/VITAMIN D 600 MG-400 UNIT TABLET PO SCH (09:50)
[2022-03-13] MEDS: ATORVASTATIN 20 MG TABLET PO SCH (21:13)
[2022-03-13] MEDS: DONEPEZIL 5 MG TABLET PO SCH (21:13)
[2022-03-14] MEDS: FONDAPARINUX 2.5 MG/0.5 ML SYRINGE SUBCUT SCH (05:38)
[2022-03-14] MEDS: LEVOTHYROXINE 25 MCG TABLET PO SCH (05:38)
[2022-03-14 06:40] LABS: Basophils % 0.2 % (0.0-0.8); Eosinophils # 0.1 10*3/uL (0.0-0.87); Eosinophils % 1.1 % (0.00-10.9); Hematocrit 26.5 VOL% (35.7-47.0); Immature Granulocytes % 0.3 %; Immature Granulocytes Absolute 0.02 #; Lymphocytes # 0.8 10*3/uL (1.4-4.0); Lymphocytes % 12.4 % (21.3-54.2); Mean Platelet Volume 9.4 FL (9.6-12.0); Monocytes # 0.6 10*3/uL (0.11-0.8); Monocytes % 8.6 % (1.7-12.7); Neutrophils % 77.4 % (38.7-73.9); Platelet Count 168 T/CUMM (130-400); Red Blood Count 3.01 MC/CUMM (3.8-5.5); Red Cell Distribution Width 15.4 % (9.3-17.3); White Blood Count 6.5 T/CUMM (4-12)
[2022-03-14 06:58] LABS: Calcium 8.8 MG/DL (8.5-10.1); Osmolality,Calculated 255.9 MOS/KG (273-304)
[2022-03-14] MEDS: POTASSIUM CHLORIDE 20 MEQ TABLET PO SCH (09:17)
[2022-03-14] MEDS: ASPIRIN CHEW 81 MG TABLET PO SCH (09:17)
[2022-03-14] MEDS: DILTIAZEM CD 120 MG CAPSULE PO SCH (09:17)
[2022-03-14] MEDS: SENNA 8.6 MG TABLET PO SCH (09:19)
[2022-03-14] MEDS: buPROPion 75 MG TABLET PO SCH (09:19)
[2022-03-14] MEDS: PANTOPRAZOLE 40 MG TABLET PO SCH (09:19)
[2022-03-14] MEDS: MULTIVITAMIN (CENTRUM) TABLET PO SCH (09:19)
[2022-03-14] MEDS: CALCIUM (CARBONATE)/VITAMIN D 600 MG-400 UNIT TABLET PO SCH (09:19)
[2022-03-14] MEDS: FUROSEMIDE 40 MG TABLET PO SCH (09:19)
[2022-03-14] MEDS: DOCUSATE SODIUM 100 MG CAPSULE PO SCH (09:19)
[2022-03-14] MEDS: MEMANTINE 10 MG TABLET PO SCH (09:19)
[2022-03-14] MEDS: METOPROLOL SUCCINATE XL 50 MG TABLET PO SCH (09:19)
[2022-03-14 11:39] VITALS: BP 112/61
== END 2022-03-14 13:09 | DRG 481 ==
LOC: EDBD → EDUNIT# → N.ED 19:13 → N.3E 22:54
PROVIDERS: ADMIT Hospitalist; ATTEND Hospitalist